=== PATIENT | female | born 1940 | race Caucasian/White ===

== ENCOUNTER → 2016-10-05 | Outpatient (CLI) | payer MEDICARE, OTHER, MEDICAID ==
[~2016-10-05] MED LIST: ACETAMINOPHEN650 MG R; ALBUTEROL2.5 MG/31 INH; ALIGN4 MG PO; ASPIRIN325 MG PO; B-12 COMPL1000 MCG/1 IM; BACTRIM DS1 TAB PO; CIPRO500 MG PO; COLACE100 MG PO; COREG25 MG PO; COUMADIN ** 9/62 MG PO; COZAAR50 MG PO; DECADRON4 MG PO; DILANTIN100 MG PO; DULCOLAX10 MG R; FEOSOL325 MG PO; FLONASE 50 MCG/16 GM NOSE; HOUSE SUPPLEMENT; HYDROCHLOROTHIA25 MG PO; IMODIUM A-D2 MG PO; IPRAT-ALBUT 0.5-3 ML INH; KEFLEX500 MG PO; KEPPRA1000 MG PO; KLOR-CON 1010 MEQ PO; LANTUS (IN100 UNIT/M SUB-Q; LEVEMIR100 UNIT/1 SUB-Q; LEXAPRO20 MG PO; MILK OF MA400 MG/5 M PO; MIRALAX17 GM PO; NEOSPORIN OIN14.2 GM TOP; NORCO 5-325 TA1 EACH PO; NORVASC10 MG PO; NOVOLOG100 UNIT/1; NOVOLOG100 UNIT/1 SUB-Q; NOVOLOG100 UNIT/M SUB-Q; NYSTATIN15 GM TOP; OXYGEN M-15 INH; PERCOCET 5-3251 EACH PO; PHENERGAN-DM120 ML PO; PLAVIX75 MG PO; PROBIOTIC1 EAC1 PO; PROTONIX40 MG PO; REVLIMID15 MG PO; SANCTURA 20MG20 MG PO; SENNA-S TABLET1 EACH PO; SEROPHENE50 MG PO; SEROQUEL50 MG PO; SURFAK240 MG PO; SYNTHROID137 MCG PO; TESSALON PERLE100 MG PO; TOPAMAX100 M1 PO; TYLENOL325 MG PO; VESICARE5 MG PO; VOLTAREN 1% GE100 GM TOP; ZOFRAN4 MG PO
== END | disposition disaster alternative care site (69) ==
LOC: LJOHN2 11:16
DX: C80.1 Malignant (primary) neoplasm, unspecified (principal); D63.0 Anemia in neoplastic disease; R53.83 Other fatigue

== ENCOUNTER 2016-10-23 14:29 | Emergency (ER) | payer MEDICARE, OTHER, MEDICAID ==
--- NOTE | ~2016-10-23 | ER ---
PATIENT'S NAME: DENYS STEPHENSON [facility] AGE: 76 Y [address] ROOM: [place] [address] LOCATION: [facility] ADMIT DATE: 10/23/2016 ER/Outpatient Report DISCHARGE DATE: 10/23/2016 FAMILY PHYSICIAN: Prakash Zelaya MD ATTENDING PHYSICIAN: Marcio Jara HISTORY OF PRESENT ILLNESS: This patient is a 76-year-old female, who has some extraocular muscle dysfunction involving the left eye. The patient initially saw Dr. Jara here in the emergency department. See Dr. Jara's dictation in regard to the chief complaint, history of present illness, past medical history, physical exam, laboratory study results, CT scan study results. Dr. Jara transferred the patient's care over to me at shift change. He asked me to follow up with the patient's MRI of the brain study, final diagnosis, and treatment plan. MRI of the brain showed 3 punctate infarcts, one involving the left mid line of the mary lou, second right parietal lobe, and third right basal ganglia. MRI scan was read by Radiology, see dictated transcribed report. IMPRESSION: 1. Three punctate infarcts involving:. a. Left mid line area of the mary lou. b. Right parietal lobe. c. Right basal ganglia. The patient does have dysfunction of the extraocular muscle and movements of the left eye. PLAN: I did discuss this patient with Dr. Ashley for Dr. Zelaya. Dr. Ashley felt that this patient is in need of a stroke workup but could have this as an outpatient basis. The patient will be discharged back to [facility] from the emergency department. Continue present medications and care. The patient is to follow up with Dr. Zelaya in 1 to 2 days for outpatient stroke workup. I did discuss this with the patient. She seemed to understand. MD ZUHAIR SOTO/modl /[id number] d: 10/24/16 0059 t: 10/24/16 1836, OUTPATIENT REPORT
--- NOTE | ~2016-10-23 | ER ---
PATIENT'S NAME: DENYS STEPHENSON [facility] AGE: 76 Y [address] ROOM: [place] [address] LOCATION: [facility] ADMIT DATE: 10/23/2016 ER/Outpatient Report DISCHARGE DATE: 10/23/2016 FAMILY PHYSICIAN: Prakash Zelaya MD ATTENDING PHYSICIAN: Marcio Jara CHIEF COMPLAINT: Unusual eye movements. HISTORY OF PRESENT ILLNESS: According to the facility and the patient's primary care provider Dr. Zelaya, today, the patient had unusual eye motion which she has not had previously. The symptoms started today. Dr. Zelaya knows the patient can be a minimizer, but has relatively well-controlled seizure disorder as well as diabetes. She is a facility patient. She has no personal complaints. She was evaluated at [facility] earlier today and reportedly has a third nerve palsy, but it is not clear which side that is present on. She does note intermittent double vision. No other concerns at this time. No headache. No other focal weakness or symptoms. PAST MEDICAL HISTORY: Documented on the record and reviewed by me. SOCIAL HISTORY: Documented on the record and reviewed by me. MEDICATIONS: Documented on the record and reviewed by me. ALLERGIES: DOCUMENTED ON THE RECORD AND REVIEWED BY ME. REVIEW OF SYSTEMS: All systems were reviewed and negative except as noted in the HPI. PHYSICAL EXAMINATION: VITAL SIGNS: Blood pressure 119/64, pulse 67, respiratory rate is 16, temperature 97.6, SpO2 is 92% on room air. Pain is 0/10. GENERAL: A 76-year-old female appearing older than stated age, sitting in a wheelchair with no obvious pain or distress. NEURO: The patient is awake and alert. GCS is 15. She has dysconjugate gaze with intermittent fixation with right and left eyes. The eyes are dilated, however, the patient did receive dilated exam earlier today. Extraocular movements are intact, though it does appear as though the left eye has difficulty crossing the midline, but intermittently does. She does have PATIENT'S NAME: DENYS STEPHENSON [facility] AGE: 76 Y [address] ROOM: [place] [address] LOCATION: [facility] ADMIT DATE: 10/23/2016 ER/Outpatient Report DISCHARGE DATE: 10/23/2016 FAMILY PHYSICIAN: Prakash Zelaya MD ATTENDING PHYSICIAN: Marcio Jara nystagmus at rest occasionally as well. The extremities do not reveal any obvious weakness, and she has very poor tone in the bilateral lower extremities. No other facial asymmetry or other cranial nerve deficit that I could detect on exam. No dysarthria. HEENT: Normocephalic and atraumatic. The eyes are dilated. Extraocular movements appear intact, except as noted above. The oropharynx is clear and moist. NECK: Supple. Trachea is midline. CHEST/HEART: Regular rate and rhythm with no murmurs. LUNGS: Clear to auscultation bilateral. ABDOMEN: Normal to palpation. No obvious rebound, guarding, or masses. BACK: Deferred. EXTREMITIES: Grossly warm and well perfused. There are ankle booties on both sides. SKIN: Appears to be well, intact. LABS AND X-RAYS: Head CT without significant findings per Radiology. Labs were obtained and notable for hypothyroidism with a TSH of 5.78 and a free T4 of 0.7. CMS is notable for a glucose of 123, BUN of 19, normal renal function, and elevated alk phos of 146. CBC with a low white count of 3.3, hemoglobin of 13.8, platelets of 117, INR is 1.0. MRI of the brain is pending. IMPRESSION: New cranial nerve palsy, undetermined etiology. EMERGENCY DEPARTMENT COURSE: The patient seen and evaluated. Head CT nondiagnostic. Exact time of onset is unknown. I do not believe the patient is a tPA candidate at this time. Labs are nondiagnostic for new conditions. The patient has known hypothyroidism. Head MRI is pending. Care was transitioned to Dr. Leahy at 1800 hours to follow up the MRI and disposition the patient accordingly. MD SEAN LOWE/ranjana /[id number] d: 10/24/16 1113 t: 10/30/16 0657, OUTPATIENT REPORT
[~2016-10-23 14:29] MED LIST changes: -COREG25 MG PO; -COUMADIN ** 9/62 MG PO; -KEFLEX500 MG PO; -LEVEMIR100 UNIT/1 SUB-Q; -NEOSPORIN OIN14.2 GM TOP; -PLAVIX75 MG PO; -SENNA-S TABLET1 EACH PO; -VOLTAREN 1% GE100 GM TOP
[2016-10-23 15:59] LABS: BASOPHIL # 0.1 K/uL (0.0-0.2); BASOPHIL % 1.8 %; EOSINOPHIL # 0.3 K/uL (0.0-0.5); EOSINOPHIL % 8.2 %; HEMATOCRIT 42.8 % (33.0-46.0); HEMOGLOBIN 13.8 g/dL (10.0-15.0); IMMATURE GRANULOCYTE % 0.3 %; LYMPHOCYTE % 29.4 %; MCH 33.6 pg (27.0-34.0); MCHC 32.2 gm/dL (32.0-36.5); MCV 104.1 fl (83.0-98.0); MONOCYTE # 0.4 K/uL (0.0-1.0); MPV 10.5 fl (9.4-12.4); NEUTROPHIL # (ANC) 1.6 K/uL (1.8-7.8); NEUTROPHIL % 47.3 %; NRBC % 0 /100WBC (0-0.00); PLATELET COUNT 117 K/uL (150-450); RBC 4.11 M/uL (3.50-5.50); RDW-CV 13.4 % (11.9-14.6); WBC 3.3 K/uL (4.0-11.0)
[2016-10-23 16:07] LABS: INR - (THERAPEUTIC) 1.02 (0.92-1.07); PROTIME 10.7 SECONDS (9.8-11.4); PTT 29 SECONDS (25-32)
[2016-10-23 16:20] LABS: ALK PHOS 146 IU/L (33-138); ALT 31 IU/L (12-78); ANION GAP 11.1 (10.0-19.0); AST 16 IU/L (10-40); BLOOD UREA NITROGEN 19 mg/dL (6-24); CALCIUM 7.8 mg/dL (8.5-10.5); CHLORIDE 106 mMol/L (96-110); CO2 28 mMol/L (22-32); CREATININE 0.7 mg/dL (0.5-1.1); ESTIMATED GFR (MDRD EQUATION) > 60; POTASSIUM 4.1 mMol/L (3.7-5.1); SODIUM 141 mMol/L (135-145); TOTAL BILIRUBIN 0.2 mg/dL (0.0-1.5); TOTAL PROTEIN 5.7 g/dL (6.0-8.4)
== END 2016-10-23 19:17 ==
LOC: GMED 14:29
PROVIDERS: Emergency Medicine
DX: I63.9 Cerebral infarction, unspecified (principal); H49.00 Third [oculomotor] nerve palsy, unspecified eye; G40.909 Epilepsy, unspecified, not intractable, without status epilepticus; E11.9 Type 2 diabetes mellitus without complications; Z88.5 Allergy status to narcotic agent; Z91.018 Allergy to other foods; Z88.8 Allergy status to other drugs, medicaments and biological substances

== ENCOUNTER 2017-01-23 15:33 | Inpatient (IN) | payer MEDICARE, OTHER, MEDICAID ==
[~2017-01-23] VITALS: Ht 170.2 cm; Wt 69.0 kg
--- NOTE | ~2017-01-23 | CATH ---
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 Severe distal LAD stenosis. Diagnostic Recommendations PCI of LAD Interventional Findings and Conclusion Successful CATALINO to distal LAD Interventional Recommendations Aspirin and Plavix and anticoagulation for 1 month, then Plavix and anticoagulation for 11 months. Procedure Description The patient was brought to the diagnostic cardiac catheterization-EP laboratory in the fasting, non-sedated state. Informed consent was obtained in the written and verbal form after the risks and benefits were explained. The patient had no further questions and agreed to proceed. The planned puncture-incision site(s) were shaved and prepped with ChloraPrep and draped in the usual sterile manner. Conscious sedation, supplemental oxygen, and pain control medications were delivered by a registered nurse under physician guidance. Surface ECG rhythm, blood pressure measurement, and pulse oximetry were monitored throughout the procedure. Arterial access. The access site was infiltrated with lidocaine. The vessel was entered with the Seldinger technique. A sheath was advanced into the vessel and used for catheter placement. Venous access. The access site was infiltrated with 2% lidocaine. The vessel was entered with the Seldinger technique. A sheath was advanced into the vessel and used for catheter placement. Selective left coronary angiography. A catheter was advanced into the left coronary vessel ostium under Fluoroscopic guidance. Contrast was injected by hand. Images were obtained in multiple projections. Selective right coronary angiography. A catheter was advanced into the right coronary vessel ostium under fluoroscopic guidance. Contrast was injected by hand. Images were obtained in multiple projections. Left heart catheterization. A catheter was advanced across the aortic valve to the left ventricle under fluoroscopic guidance. Resting hemodynamics were obtained. Right heart catheterization. A [place] Jesi catheter was successfully advanced to the right atrium, right ventricle, pulmonary artery, and pulmonary artery wedge position under fluoroscopic guidance. Resting hemodynamics were obtained. Measurements included pressures, arterial and venous oxygen saturation samples, and cardiac output. The [place] was removed without difficulty. Angioplasty and Stent Placement: A guiding catheter was used to intubate the vessel. A 0.14 wire was then used to cross the lesion. A balloon catheter was placed across the lesion and inflated. The balloon catheter was then removed. A Drug Eluting Stent was placed and inflated. Post placement angiograms were performed. Arterial and Venous hemostasis was achieved. The patient was transferred to a regular nursing floor via cart accompanied by a nurse. The patient left the laboratory in stable condition. Diagnostic Cath Status: Urgent Interventional Cath Status: Urgent Procedure Procedure Type Diagnostic procedure:Angiography:, Right and Left Heart Cath, Coronary Angios PCI procedure:Bare Metal Coronary Stent:, LAD, PTCA:, LAD Indications: Shortness of breath and Elevated troponin. The procedure was explained in detail to the patient. Risks, complications and alternative treatments were reviewed. Written consent was obtained. Medications Reviewed with Patient prior to Procedure. Angiographic Findings Dominance: Right Cardiac Arteries and Lesion Findings LMCA: Lesion on LMCA: Distal subsection.30% stenosis . LAD: Lesion on Dist LAD: Mid subsection.75% stenosis 20 mm length reduced to 0%. Pre procedure GERDA III flow was noted. Post Procedure GERDA III flow was present. The guidewire cross was successful.The lesion was diagnosed as a high risk lesion.Culprit lesion. Treatment results:Interventional treatment was successful. Devices used - Whisper Wire .014 x 190. Number of passes: 1. - Emerge Balloon 2.0 x 15. 1 inflation(s) to a max pressure of: 10 ananya. - Promus Premier 2.25 x 20 Stent. 1 inflation(s) to a max pressure of: 11 ananya. - NC Emerge Balloon 2.5 x 15. 1 inflation(s) to a max pressure of: 14 ananya. Lesion on Prox LAD: 30% stenosis . Lesion on Mid LAD: 40% stenosis . Lesion on 1st Dia% stenosis . LCx: Lesion on 1st Ob Jammie: Mid subsection.50% stenosis . Lesion on Prox CX: 20% stenosis . RCA: PDA possibly occluded distally Lesion on Mid RCA: 40% stenosis . Coronary Tree Procedure Data Procedure Date Date: 01/26/2017Start: 05:29 PMEnd: 06:50 PM Entry Locations - Retrograde Percutaneous access was performed through the Right Radial artery (Primary location). A 6 Fr sheath was inserted. Unsuccessful closure attempt was performed using: an R band. Hemostasis was successfully obtained using Mechanical Compression. Closure Comments: 13 cc of air in the R band. - Antegrade Percutaneous access was performed through the Right Brachial vein. A 6 Fr sheath was inserted. Hemostasis was successfully obtained using Manual Compression. Closure Comments: Pressure held by Trish for 10 minutes.. Procedure Medications Order and Administration + + + + + !Time !Medication !Dosage !Route ! + + + + + !01/26/2017 05:32 PM !Radial Heparin (ACC_3) !2500 units !I.A. ! + + + + + 01/26/2017 05:32 PM !Radial Verapamil !3 mg !I.A. ! + + + + + 01/26/2017 05:32 PM !Radial Nitroglycerin !200 mcg !I.A. ! + + + + + !01/26/2017 05:36 PM !Oxygen !2 l/min !NC ! + + + + + !01/26/2017 05:41 PM !Heparin (ACC_3) ! !I.V. drip ! + + + + + !01/26/2017 05:50 PM !Heparin (ACC_3) !4000 units !I.V. bolus ! + + + + + !01/26/2017 06:10 PM !Integrilin (ACC_7) !20 mg !I.C. ! + + + + + !01/26/2017 06:23 PM !Nitroglycerin !200 mcg !I.C. ! + + + + + !01/26/2017 06:28 PM !Plavix (ACC_8) !600 mg !P.O. ! + + + + + Devices Used - A6 Fr. Balloon Wedge Catheterwas used for:Right heart cath. - A6 Fr. BS JR 4 Diag. Catheterwas used for:Right coronary angiography. - A6 Fr. BS JL 3.5 Diag. Catheterwas used for:Left coronary angiography. - A6 Fr. XBLAD 3.5 Guide Catheterwas used for:LAD Intervention. - A6 Fr. Guidlinerwas used for:LAD Intervention. Contrast Material - Isovue [id number] ml Fluoroscopy Time: Diagnostic: 17:00 minutes. Total: 17:00 minutes. Fluoroscopy Dose: Diagnostic: 1966 mGy. Total: 1966 mGy. Estimated Blood Loss: 25 ml. Additional [facility] PCI Information PCI Indication:PCI for high risk Non-STEMI or unstable angina. Medical History Allergies - Morphine. - Other:(Niacin). - Other:(Strawberries). Risk Factors The patient risk factors include:treated hypertension, insulin-treated diabetes mellitus, last creatinine: 0.5 mg/dl and creatinine clearance: 110.35 ml/min. Admission Data Admission Date: 01/23/2017 Admission Time: 05:35 PM Insurance Payors: Medicare. Admission Medications + +------+------+ + + + + !Medication !Dosage!Times !Last !Last !Administered !Comments ! ! ! !Per !Delivery !Delivery ! ! ! ! ! !Day !Date !Time ! ! ! + +------+------+ + + + + !Aspirin ! ! ! ! !Yes ! ! !(any) ! ! ! ! ! ! ! + +------+------+ + + + + !Beta ! ! ! ! !Yes ! ! !Thomas ! ! ! ! ! ! ! !(any) ! ! ! ! ! ! ! + +------+------+ + + + + Clinical Evaluation Leading to Procedure - The patient's CAD presentation was assessed as: Non-STEMI. - The patient's anginal syndrome during the past two weeks was assessed as: Class IV according to the [place] Cardiovascular Society Classification System (CCS). Anti-anginal medications were prescribed during the past two weeks. The medication is: Beta Blockers. Snapshots Hemodynamics Condition: Rest O2 Consumption: Estimated: 180.70Heart Rate: 91 bpm Oxygen Saturation +--------+-----+----+ +---+ + !Location!pCO2 !pO2 !% Saturation !Hgb!O2 Content ! +--------+-----+----+ +---+ + !RA ! ! !60.8 ! ! ! +--------+-----+----+ +---+ + !PA ! ! !59.8 ! ! ! +--------+-----+----+ +---+ + !FA ! ! !87.4 ! ! ! +--------+-----+----+ +---+ + Pressures (mmHg) +-----+ + !Site !Pressure ! +-----+ + !RA !9/9 (8) ! +-----+ + !RV !42/4 ,11 ! +-----+ + !PCW !18/19 (15) ! +-----+ + !PA !44/19 (31) ! +-----+ + !LV !110/17 ,19 ! +-----+ + !LV !120/7 ,9 ! +-----+ + !AO !118/77 (95) ! +-----+ + !LV !119/6 ,9 ! +-----+ + !AO !122/74 (97) ! +-----+ + !AO !108/70 (87) ! +-----+ + Cardiac Output +------+ + + + !Method!CO (l/min) !CI (l/min/m2) !SV (ml) ! +------+ + + + !Bibi !3.46 !1.9 !38.23 ! +------+ + + + Valve Gradients and Areas + +--------+--------+--------+---------+ + + !Valve !Peak !Mean !Area !Index !Flow !Source ! + +--------+--------+--------+---------+ + + !Aortic !1 !0 ! ! !228.08 !Bibi ! + +--------+--------+--------+---------+ + + !Aortic !1 !0 ! ! ! ! ! + +--------+--------+--------+---------+ + + Shunts Oxygen Values O2 Capacity 189.04 O2 Consumption 180.7 Flows (l/min) Qs 3.59 Vascular Resistance (dynes x sec x cm-5) + +-----+-----+----+----+---------+-------+ !CO method !TSVR !SVR !TPVR!PVR !TPVR/TSVR!PVR/SVR! + +-----+-----+----+----+---------+-------+ !Bibi !25.14!22.84!8.93!4.63!0.36 !0.2 ! + +-----+-----+----+----+---------+-------+ !Qp or Qs !24.23!22.01! ! ! ! ! + +-----+-----+----+----+---------+-------+ Signatures dtt: Kat Newton dtd: 01/26/17 1729 Physician Self Edit
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
--- NOTE | ~2017-01-23 | DS ---
PATIENT'S NAME: DENYS STEPHENSON [facility] AGE: 76 Y [address] ROOM: [place] [address] LOCATION: GPCU ADMIT DATE: 01/23/2017 Discharge Summary DISCHARGE DATE: 02/07/2017 FAMILY PHYSICIAN: Prakash Zelaya MD ATTENDING PHYSICIAN: Prakash Zelaya DISCHARGE DIAGNOSES: 1. Bilateral pleural effusions with hypoxia. 2. Aaq-CQ-geudkqo elevation myocardial infarction with cardiovascular disease. 3. Diabetes mellitus type 2, insulin dependent. 4. Hypertension. 5. Atrial flutter. 6. Chronic anticoagulation. 7. Multiple myeloma. 8. Anxiety. 9. Hypokalemia. 10. Urinary incontinence. CONSULTS DURING ADMISSION: 1. Pulmonology. 2. Cardiology. 3. Physical Therapy and Occupational Therapy. PROCEDURES DURING ADMISSION: 1. Heart catheterization on January 26, 2017. 2. Thoracentesis for bilateral pleural effusions on February 01, 2017. 3. Attempted cardioversion on February 03, 2017. HOSPITAL COURSE: The patient is a 76-year-old female, who presented with acute hypoxia and elevated D-dimer. The patient was negative for pulmonary emboli on her CT, but did show large pleural effusions. Cardiology was consulted, and we attempted diuresis, and the patient was found to have elevated heart enzymes and was diagnosed with an NSTEMI. The patient had a heart catheterization with stent placement on January 26 and tolerated it well. We continued to diurese the patient, but the effusions remained enlarged, so Pulmonology was consulted and performed a thoracentesis on February 01, 2017. The patient's blood sugars and hypertension remained controlled through her hospital stay. The patient also remained in atrial flutter and an attempt at cardioversion was made, but was unsuccessful. It was determined at that time that we would just do Coumadin based on the interaction of the other anticoagulants with her seizure disorder. Upon day of discharge, the patient was on room air but still requiring oxygen at night. DISCHARGE CONDITION: Stable. PATIENT'S NAME: DENYS STEPHENSON [facility] AGE: 76 Y [address] ROOM: [place] [address] LOCATION: GPCU ADMIT DATE: 01/23/2017 Discharge Summary DISCHARGE DATE: 02/07/2017 FAMILY PHYSICIAN: Prakash Zelaya MD ATTENDING PHYSICIAN: Prakash Zelaya DISPOSITION: senior living. DISCHARGE MEDICATIONS: Please see list. DISCHARGE INSTRUCTIONS: The patient's INR is therapeutic today, but we will obtain another INR in approximately 2 days. We will decrease her dose from 4 mg to 3 mg since she became therapeutic so quickly. We will continue to monitor her sugars and send her with a reduced dose of her long-acting to try and prevent any hypoglycemic events. We will have her follow up with Cardiology and Pulmonology as directed. MD TAYE SWEENEY/ranjana /[id number] d: 02/08/17 0300 t: 02/09/17 1901, DISCHARGE SUMMARY
--- NOTE | ~2017-01-23 | CON ---
PATIENT'S NAME: NADIA VEGA [facility] AGE: 76 Y [address] ROOM: G6304 [place], [place] [address] LOCATION: GPCU ADMIT DATE: 01/23/2017 Consultation DISCHARGE DATE: FAMILY PHYSICIAN: Prakash Zelaya MD ATTENDING PHYSICIAN: Prakash Zelaya REFERRING PHYSICIAN: Kat Newton MD HISTORY OF PRESENT ILLNESS: Nadia Vega is a 76-year-old woman, who is currently hospitalized for evaluation and treatment of atrial fibrillation and diastolic congestive heart failure associated with dyspnea, hypoxia, and bilateral pleural effusions. Parenthetically, the Pharmacy has raised a question about whether her lenalidomide needs to be discontinued or continued, and has asked Hematology/Oncology to address the situation. Ms. Vega currently lives in [facility]. She has lived there for a year, following the of Mr. Vega. She has been wheelchair bound for three years because she is prone to falls. She is under treatment for a seizure disorder. On 01/23/2017, the patient presented to Dr. Prakash Zelaya's office with dyspnea. Hypoxia and bilateral pleural effusions were noted. The presence of continued atrial fibrillation was noted. The patient was hospitalized on the Progressive Care Unit, and Dr. Newton was consulted for evaluation of her bilateral pleural effusions, atrial fibrillation, and right bundle-branch block. The patient is currently on a diltiazem infusion, a heparin infusion, and nitroglycerin. She also takes fluticasone, ASA 81 mg p.o. daily, Bactrim DS one p.o. on Sunday and , carvedilol, and Colace as well as her phenytoin, levetiracetam, levothyroxine sodium, escitalopram, atorvastatin, clopidogrel, pantoprazole, quetiapine, and insulin. The patient's clinical situation has improved somewhat. The patient does have multiple myeloma, which was first symptomatic with a destructive expansive lesion in the right posterior tenth rib noted on CAT scan on 04/03/2014. A lucent vertebral body was present on the right side of C7. Dr. 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 The patient was placed on lenalidomide and dexamethasone on 12/30/2014 and zoledronic acid on 01/07/2015. The patient is currently on day 14 of her 25th cycle of zoledronic acid, and on day 11 of her 26th cycle of lenalidomide and dexamethasone. The patient generally receives lenalidomide 15 mg p.o. days 1 to 21 and dexamethasone 40 mg p.o. on days one, eight, fifteen, and twenty two. The patient's lambda light chains were slightly elevated at 31.1 mg/L on 01/17/2017. The quantitative immunoglobulins were normal. There was hypoalbuminemia on the serum protein PATIENT'S NAME: NADIA VEGA [facility] AGE: 76 Y [address] ROOM: [place] [address] LOCATION: GPCU ADMIT DATE: 01/23/2017 Consultation DISCHARGE DATE: FAMILY PHYSICIAN: Prakash Zelaya MD ATTENDING PHYSICIAN: Prakash Zelaya electrophoresis. The patient was doing reasonably well (see the progress note from [facility] on 01/17/2017). Her appetite was good, her energy level was stable, and she was sleeping well. The patient was placed on her lenalidomide. Her absolute neutrophil count was 1410 and her hemoglobin was 14.5 g/dL. Followup was planned in four weeks. Subsequently, the patient developed her dyspnea. ACTIVE MEDICAL PROBLEMS, CHRONIC AND DIAGNOSED: 1. Osteoarthritis. 2. Seizure disorder. 3. Vitamin B12 deficiency. 4. Anxiety - depression. 5. Atrial fibrillation. 6. Diastolic congestive heart failure. 7. Type 2 diabetes mellitus. 8. Hyperreflexic bladder. 9. Hypothyroidism. MEDICATIONS UPON ADMISSION: Other than those noted in the current medications: 1. Acetaminophen. 2. Albuterol. 3. Amlodipine. 4. Aspirin 325 mg p.o. b.i.d. 5. Benzonatate. 6. Cephalexin. 7. Diclofenac. 8. Cyanocobalamin. 9. Docusate sodium. 10. Fluticasone. 11. Hydrocodone. 12. APAP. 13. Lactobacillus. 14. Loperamide. 15. Magnesium hydroxide. 16. Ondansetron. 17. KCl. ADVERSE REACTIONS TO MEDICATIONS, TRANSFUSIONS, AND ALLERGIES: 1. The patient reports allergies to niacin, morphine, and strawberries. 2. The patient received two units of packed red blood cells on 10/23/2013. HABITS: 1. No tobacco. 2. No alcohol. PATIENT'S NAME: NADIA VEGA [facility] AGE: 76 Y [address] ROOM: [address] [place], [place] [address] LOCATION: [facility] ADMIT DATE: 01/23/2017 Consultation DISCHARGE DATE: FAMILY PHYSICIAN: Prakash Zelaya MD ATTENDING PHYSICIAN: Prakash Zelaya SOCIAL HISTORY: The patient is currently , and lives in the [facility]. ACUTE MEDICAL ILLNESSES (RESOLVED), PAST SURGERIES, AND INJURIES: 1. In 2013 - right total shoulder arthroplasty. 2. In 2013, right humerus fracture in the periprosthetic area. 3. In 2014, excision of tenth rib. 4. In 2016, hospitalization with community-acquired pneumonia. 5. Current hospitalization for atrial fibrillation with rapid ventricular response and fluid retention. REVIEW OF SYMPTOMS: Not obtained other than the pertinent findings already mentioned in the history of the present illness. PHYSICAL EXAMINATION: VITAL SIGNS: Pulse was 94 and irregularly irregular, blood pressure was 110/65, respiratory rate was 17, and temperature was 98.7. Height is 67 inches, weight is 71.9 kg (159 pounds), and BMI is 24.8 kg/m2. GENERAL: Well-developed, chronically ill, somewhat drowsy 76-year-old female, in no acute distress. HEENT: Unremarkable. Lymph nodes were nonpalpable. NECK: Mild JVD. CHEST: Decreased breath sounds. CARDIOVASCULAR: Irregularly irregular rhythm with no murmurs, bruits, or adventitious sounds. ABDOMEN: Soft. EXTREMITIES: Palpable peripheral pulses. No clubbing or cyanosis. Trace lower extremity. NEUROLOGIC: Arousable and appropriate. IMPRESSION: 1. Multiple myeloma, in remission. 2. The lenalidomide conceivably could promote the atrial fibrillation. Conceivably, the dexamethasone could contribute to the patient's fluid retention and be one factor that predisposed her to atrial fibrillation and difficulties controlling the rhythm. 3. The patient is on heparin, so it is reasonable to place the patient on lenalidomide. At the very least, she should be on 325 mg of aspirin p.o. b.i.d. to lower the chance of deep venous thrombosis from the combination of lenalidomide and dexamethasone. If she has to be on therapeutic anticoagulation for her atrial fibrillation, of course, aspirin can and should be discontinued. RECOMMENDATIONS: PATIENT'S NAME: NADIA VEGA [facility] AGE: 76 Y [address] ROOM: [place] [address] LOCATION: [facility] ADMIT DATE: 01/23/2017 Consultation DISCHARGE DATE: FAMILY PHYSICIAN: Prakash Zelaya MD ATTENDING PHYSICIAN: Prakash Zelaya DIAGNOSTIC: No further tests from the multiple myeloma standpoint. TREATMENT 1. Reinstate lenalidomide for the next 10 days of the planned course. 2. Consider holding or decreasing the dose of dexamethasone, which is quite ample for a woman her age and performance status. PATIENT EDUCATION: Discussed the approach for multiple myeloma, but emphasized that is not the reason she is in the hospital, which she already knew. JOCELYNE CARPENETR MD [facility]/modl /[id number] CC: Kat Newton MD d: 01/31/17 2337 t: 02/01/17 0945, CONSULTATION REPORT
--- NOTE | ~2017-01-23 | PUL ---
PATIENT'S NAME: DENYS STEPHENSON [facility] AGE: 76 Y [address] ROOM: [place] [address] LOCATION: GPCU ADMIT DATE: 01/23/2017 Pulmonary DISCHARGE DATE: 02/07/2017 FAMILY PHYSICIAN: Prakash Zelaya MD ATTENDING PHYSICIAN: Prakash Zelaya NAME OF PROCEDURE: Overnight Pulse Oximetry DATE OF PROCEDURE: February 06 to February 07, 2017 REASON FOR EXAM: Nocturnal hypoxemia RESULTS: The test was performed on room air. The recording time was 10 hours, 54 minutes, and 40 seconds, with a total valid sampling time of 10 hours, 53 minutes, and 44 seconds. The highest pulse was 162, lowest pulse was 67, the mean pulse was 97. The highest SpO2 was 96%, the lowest SpO2 was 75%, with a mean SpO2 of 91.2%. The patient spent 1 hour, 32 minutes and 52 seconds with SpO2 less than 89%, representing 14.2% of the total sleep time. The desaturation event index was elevated at 19.4. PHYSICIAN INTERPRETATION: The patient has evidence of significant nocturnal hypoxia and would qualify for supplemental oxygen as per Medicare criteria. However, because of her significant nocturnal hypoxia with an elevated desaturation event index a sleep study is suggested at this time. MD KIM GUADARRAMA/alondra /[id number] dtt: 02/08/17 1426 , LUCINA LOYOLA dtd: 02/08/17 1319
--- NOTE | ~2017-01-23 | ENPV ---
Vascular Lower Extremities DVT Study Procedure Demographics Patient Name DENYS STEPHENSON Date of Study 01/24/2017 Patient Number [id number] Gender Female Date of 1940 Age 76 Visit Number [id number] Height 67 Weight 165 Number Referring Nathalie Richmond MD Interpreting Eric Vinson MD Physician Physician Physician Ordering Nathalie Richmond Ag Equipment Field Service Technician Physician Director Of Sales Marketing [facility] Conclusions Summary No evidence of deep vein thrombosis or superficial thrombophlebitis in the lower extremities bilaterally. Bilateral peroneal not well visualized, can't rule out small emboli. Procedure Type of Study: Veins:Lower Extremities DVT Study, Venous Duplex Lower Extremity Bilateral. Indications for Study:Pulmonary embolism. Appropriate Use Criteria:9 Patient Status:Routine. Study Location:Inpatient Portable. Technical Quality:Adequate visualization. Velocities are measured in cm/s ; Diameters are measured in cm Right Lower Extremities DVT Study Measurements Right 2D and Doppler Measurements + + + + +------+------+ + !Location !Visualized!Compressibility!Thrombosis!Signal!Reflux!Reflux ! ! ! ! ! ! ! !(sec) ! + + + + +------+------+ + !GSV Thigh !Yes !Yes !None !Phasic! ! ! + + + + +------+------+ + !Common !Yes !Yes !None !Phasic! ! ! !Femoral ! ! ! ! ! ! ! + + + + +------+------+ + !Prox !Yes !Yes !None !Phasic! ! ! !Femoral ! ! ! ! ! ! ! + + + + +------+------+ + !Mid Femoral!Yes !Yes !None !Phasic! ! ! + + + + +------+------+ + !Dist !Yes !Yes !None !Phasic! ! ! !Femoral ! ! ! ! ! ! ! + + + + +------+------+ + !Popliteal !Yes !Yes !None !Phasic! ! ! + + + + +------+------+ + !Gastroc !Yes !Yes !None !Phasic! ! ! + + + + +------+------+ + !PTV !Yes !Yes !None ! ! ! ! + + + + +------+------+ + !Peroneal !No !No ! ! ! ! ! + + + + +------+------+ + Left Lower Extremities DVT Study Measurements Left 2D and Doppler Measurements + + + + +------+------+ + !Location !Visualized!Compressibility!Thrombosis!Signal!Reflux!Reflux ! ! ! ! ! ! ! !(sec) ! + + + + +------+------+ + !GSV Thigh !Yes !Yes !None !Phasic! ! ! + + + + +------+------+ + !Common !Yes !Yes !None !Phasic! ! ! !Femoral ! ! ! ! ! ! ! + + + + +------+------+ + !Prox !Yes !Yes !None !Phasic! ! ! !Femoral ! ! ! ! ! ! ! + + + + +------+------+ + !Mid Femoral!Yes !Yes !None !Phasic! ! ! + + + + +------+------+ + !Dist !Yes !Yes !None !Phasic! ! ! !Femoral ! ! ! ! ! ! ! + + + + +------+------+ + !Popliteal !Yes !Yes !None !Phasic! ! ! + + + + +------+------+ + !Gastroc !Yes !Yes !None !Phasic! ! ! + + + + +------+------+ + !PTV !Yes !Yes !None ! ! ! ! + + + + +------+------+ + !Peroneal !No ! ! ! ! ! ! + + + + +------+------+ + Signature dtt: DALLIN LIEBERMAN dtd: 01/24/17 0708 Physician Self Halima
--- NOTE | ~2017-01-23 | CON ---
PATIENT'S NAME: DENYS STEPHENSON [facility] AGE: 76 Y [address] ROOM: [place] [address] LOCATION: GPCU ADMIT DATE: 01/23/2017 Consultation DISCHARGE DATE: 02/07/2017 FAMILY PHYSICIAN: Prakash Zelaya MD ATTENDING PHYSICIAN: Prakash Zelaya DATE OF CONSULTATION: 01/31/2017 REFERRING PHYSICIAN: Kat Newton MD INDICATION: Bilateral pleural effusions. HISTORY OF PRESENT ILLNESS: This 76-year-old female, admitted for bilateral effusions and new onset atrial fibrillation after being noted to be hypoxic as well. She has a history of multiple myeloma, hypertension, and recent echo showing EF of 60% with mildly reduced right ventricle and pulmonary hypertension with RVSP 45. ProBNP was elevated on admission to 10,782. She was initially diuresed, but after a couple of days, she was hypotensive, so diuretics were stopped. She was taken to asset availability leader on the with 3-vessel disease and received drug-eluting stent to the LAD. She was started on Cardizem drip and is now on beta-marc for rate control for the atrial fibrillation. She has mainly been on room air and is currently on room air at 96%. She denies shortness of breath or worsening cough. She has no hemoptysis or edema. She has no history of tobacco use or previous lung history. A CT of the chest shows bilateral pleural effusions with atelectasis. PAST MEDICAL HISTORY: Includes diabetes, hypertension, GERD, multiple myeloma, hypothyroidism, and anemia. ALLERGIES: SEE MAR. MEDICATIONS: See MAR. FAMILY HISTORY: The patient's mother has a history of cancer. She also has an uncle and grandmother with a history of cancer. SOCIAL HISTORY: The patient denies ever using tobacco. She denies alcohol use. REVIEW OF SYSTEMS: PATIENT'S NAME: DENYS STEPHENSON [facility] AGE: 76 Y [address] ROOM: [place] [address] LOCATION: GPCU ADMIT DATE: 01/23/2017 Consultation DISCHARGE DATE: 02/07/2017 FAMILY PHYSICIAN: Prakash Zelaya MD ATTENDING PHYSICIAN: Prakash Zelaya All review of systems are negative except for what is noted in the HPI. PHYSICAL EXAMINATION: VITAL SIGNS: Blood pressure 112/66, pulse 94, respirations 17, temperature 98.7. Weight currently today is 73.2, on admission is 71.9 kilos. Overall intake is greater than output serially. She is 96% on room air. GENERAL: This is a 76-year-old, well-developed, well-nourished female who is alert and oriented x3 and appears in no acute distress at the time of exam. HEENT: Head: Normocephalic and atraumatic. Eyes clear. NECK: Supple. No adenopathy. No carotid bruits or JVD. LUNGS: Decreased breath sounds at both bases with a few crackles. No wheezing. HEART: Regular rate and rhythm without murmur, gallop, or rub. ABDOMEN: Soft, nontender, and nondistended. Bowel sounds x4. EXTREMITIES: No cyanosis, clubbing, or edema. DIAGNOSTIC DATA: ProBNP 4659. WBC 3.4, hemoglobin 12.7, hematocrit 38.3, and platelets 115. Sodium 138, potassium 3.8, BUN 10, and creatinine 0.7. CT of the chest showed bilateral effusions, right greater than left, with bilateral atelectasis. ASSESSMENT: 1. Bilateral pleural effusions, transudative versus exudative. 2. Coronary artery disease, status post recent percutaneous coronary intervention, on aspirin, heparin drip, and Plavix. 3. Pulmonary hypertension. 4. Multiple myeloma. PLAN: We will plan for at least a diagnostic thoracentesis by Interventional Radiology. See orders for tests. Otherwise, follow up on Cardiology and Heme- Onc recommendations. Thank you for the consult and opportunity to participate in the patient's care. ROSE BUTLER APRN FOR LUCINA LOYOLA MD [facility]/ranjana /[id number] d: 02/23/17 1841 t: 03/06/17 0857, CONSULTATION REPORT
--- NOTE | ~2017-01-23 | ECHO ---
Transthoracic Echocardiography Report (TTE) Demographics Patient Name DENYS STEPHENSON Date of Study 01/24/2017 Patient Number [id number] Visit Number [id number] Date of 1940 Room Number G6304 Gender Female Number Age 76 year(s) Referring Aman Clarke Modern Dancer [employer] [facility], Physician Arlyn Richmond MD Physician Interpreting Efstratiheather Clarke External Grinder Tender Physician A Supervising Ordering Aman Arambulas MD/MLP Physician A Nurse Stress Mosaicist Conclusions Contractility Score Summary Normal Left Ventricular contractility was noted. Summary The estimated left ventricular ejection fraction is 60-65%. Mild concentric left ventricular hypertrophy. Diastolic function indeterminate due to patient's arrhythmia. Mildly reduced right ventricular function. The left atrium is mildly dilated. Mild mitral regurgitation by color Doppler. Mild tricuspid regurgitation by color Doppler. There is mild pulmonary hypertension. The pulmonary pressure (RVSP) is 45 mmHg. Procedure Type of Study TTE procedure:2D Echocardiogram, M-Mode, Doppler , Color Doppler. Procedure Date Date: 01/24/2017 Start: 07:45 AM Study Location: Inpatient Portable Technical Quality: Adequate visualization Indications:Atrial fibrillation and Congestive heart failure. Appropriate Use Criteria: 9 Patient Status: Routine HR: 94 bpm BP: 99/58 mmHg M-Mode/2D Measurements LA Dimension: 4.5 cm LA volume: 37 ml RV Mid: 2.02 cm LVOT VTI: 16.6 cm RV Length: 4.69 cm TAPSE: 1.49 cm TDI-S': 9.43 cm/s Doppler Measurements AV Peak Velocity: 1.08 m/s MV Peak E-Wave: 1.06 m/s AV Peak Gradient: 4.67 mmHg AV Mean Gradient: 3 mmHg MV P1/2t: 78 msec LVOT Peak Velocity: 0.88 m/s TR Gradient:35.05 mmHg PV Peak Velocity: 1.36 m/s Estimated RAP:10 mmHg PV Peak Gradient: 7.4 mmHg Estimated RVSP: 45 mmHg Estimated PASP: 45.05 mmHg Findings Left Ventricle Mild concentric left ventricular hypertrophy. Diastolic function indeterminate due to patient's arrhythmia. Right Ventricle Mildly reduced right ventricular function. Left Atrium The left atrium is mildly dilated. Right Atrium Normal right atrial size. Mitral Valve Moderate mitral annular calcification. Mild mitral regurgitation by color Doppler. Aortic Valve The aortic valve is mildly sclerotic. Tricuspid Valve Mild tricuspid regurgitation by color Doppler. There is mild pulmonary hypertension. The pulmonary pressure (RVSP) is 45 mmHg. Pulmonic Valve The pulmonic valve is not well visualized. Pericardial Effusion Trivial global pericardial effusion. Pleural Effusion No evidence of pleural effusion. Contractility Score LV regional wall motion:(0-Non visualized 1-Normal 2-Hypokinesis 3-Akinesis 4-Dyskinesis 5-Aneurysm) Signature dtt: Kat Newton dtd: 01/24/17 0745 Physician Self Edit
[2017-01-23 21:11] LABS: BASOPHIL % 0.9 %; EOSINOPHIL # 0.1 K/uL (0.0-0.5); EOSINOPHIL % 3.4 %; HEMATOCRIT 46.2 % (33.0-46.0); HEMOGLOBIN 15.2 g/dL (10.0-15.0); IMMATURE GRANULOCYTE % 0.3 %; LYMPHOCYTE # 0.8 K/uL (0.8-4.0); LYMPHOCYTE % 25.6 %; MCH 35.4 pg (27.0-34.0); MCHC 32.9 gm/dL (32.0-36.5); MCV 107.7 fl (83.0-98.0); MONOCYTE # 0.6 K/uL (0.0-1.0); MONOCYTE % 17.8 %; MPV 11.5 fl (9.4-12.4); NEUTROPHIL # (ANC) 1.7 K/uL (1.8-7.8); NRBC % 0 /100WBC (0-0.00); PLATELET COUNT 112 K/uL (150-450); RBC 4.29 M/uL (3.50-5.50); RDW-CV 14.6 % (11.9-14.6); WBC 3.2 K/uL (4.0-11.0)
[2017-01-23 21:18] LABS: INR - (THERAPEUTIC) 1.05 (0.92-1.07)
[2017-01-23] MEDS ORDERED: KEFLEX500 MG PO (21:41)
[2017-01-23] MEDS ORDERED: NEOSPORIN OIN14.2 GM TOP (21:52)
[2017-01-23] MEDS ORDERED: NORCO 5-325 TA1 EACH PO ×3 (22:03→22:05)
[2017-01-23] MEDS ORDERED: SENNA-S TABLET1 EACH PO (22:06)
[2017-01-23] MEDS ORDERED: VOLTAREN 1% GE100 GM TOP (22:11)
[2017-01-24 03:10] LABS: BASOPHIL % 1.2 %; EOSINOPHIL # 0.3 K/uL (0.0-0.5); EOSINOPHIL % 7.9 %; HEMOGLOBIN 14.6 g/dL (10.0-15.0); IMMATURE GRANULOCYTE % 0.3 %; LYMPHOCYTE # 1.3 K/uL (0.8-4.0); LYMPHOCYTE % 38.6 %; MCH 34.8 pg (27.0-34.0); MCHC 33.2 gm/dL (32.0-36.5); MONOCYTE # 0.6 K/uL (0.0-1.0); MONOCYTE % 16.7 %; MPV 10.7 fl (9.4-12.4); NEUTROPHIL # (ANC) 1.2 K/uL (1.8-7.8); NEUTROPHIL % 35.3 %; NRBC % 0 /100WBC (0-0.00); PLATELET COUNT 104 K/uL (150-450); RBC 4.19 M/uL (3.50-5.50); RDW-CV 14.6 % (11.9-14.6); WBC 3.3 K/uL (4.0-11.0)
[2017-01-24 03:30] LABS: ANION GAP 9.2 (10.0-19.0); BLOOD UREA NITROGEN 15 mg/dL (6-24); CHLORIDE 108 mMol/L (96-110); CO2 27 mMol/L (22-32); CREATININE 0.7 mg/dL (0.5-1.1); ESTIMATED GFR (MDRD EQUATION) > 60; MAGNESIUM 1.8 mg/dL (1.8-2.6); POTASSIUM 3.2 mMol/L (3.7-5.1); SODIUM 141 mMol/L (135-145)
[2017-01-24 03:32] LABS: CALCIUM 7.4 mg/dL (8.5-10.5)
[2017-01-25 02:22] LABS: HEMATOCRIT 41.2 % (33.0-46.0); HEMOGLOBIN 13.6 g/dL (10.0-15.0); MCH 34.3 pg (27.0-34.0); MCV 103.8 fl (83.0-98.0); MPV 10.4 fl (9.4-12.4); PLATELET COUNT 87 K/uL (150-450); RBC 3.97 M/uL (3.50-5.50); RDW-CV 14.2 % (11.9-14.6); WBC 2.7 K/uL (4.0-11.0)
[2017-01-25 02:40] LABS: ANION GAP 8.7 (10.0-19.0); BLOOD UREA NITROGEN 14 mg/dL (6-24); CHLORIDE 109 mMol/L (96-110); CO2 27 mMol/L (22-32); CREATININE 0.6 mg/dL (0.5-1.1); ESTIMATED GFR (MDRD EQUATION) > 60; POTASSIUM 3.7 mMol/L (3.7-5.1); SODIUM 141 mMol/L (135-145)
[2017-01-25 02:49] LABS: CALCIUM 6.9 mg/dL (8.5-10.5)
[2017-01-25 03:15] LABS: ABSOLUTE NEUTROPHIL CT (ANC) 0.8 K/uL (1.8-7.8); LYMPHOCYTE # 1.3 K/uL (0.8-4.0); LYMPHOCYTE % 45 %; MONOCYTE # 0.3 K/uL (0.0-1.0); SEGMENTED NEUTROPHIL # 0.8 K/uL (1.8-7.8); SEGMENTED NEUTROPHIL % 29 %
[2017-01-26 05:25] LABS: HEMATOCRIT 41.1 % (33.0-46.0); HEMOGLOBIN 13.9 g/dL (10.0-15.0); MCH 34.8 pg (27.0-34.0); MCHC 33.8 gm/dL (32.0-36.5); MPV 10.6 fl (9.4-12.4); RBC 3.99 M/uL (3.50-5.50); RDW-CV 13.8 % (11.9-14.6); WBC 2.3 K/uL (4.0-11.0)
[2017-01-26 05:30] LABS: PLATELET COUNT 106 K/uL (150-450)
[2017-01-26 05:42] LABS: INR - (THERAPEUTIC) 1.1 (0.92-1.07); PROTIME 11.6 SECONDS (9.8-11.4)
[2017-01-26 05:47] LABS: ALBUMIN 2.7 gm/dL (3.5-5.0); ANION GAP 11.6 (10.0-19.0); CREATININE 0.5 mg/dL (0.5-1.1); POTASSIUM 3.6 mMol/L (3.7-5.1); TOTAL BILIRUBIN 0.2 mg/dL (0.0-1.5); TOTAL PROTEIN 5.1 g/dL (6.0-8.4)
[2017-01-26 05:51] LABS: CALCIUM 7.1 mg/dL (8.5-10.5)
[2017-01-26 07:09] LABS: ABSOLUTE NEUTROPHIL CT (ANC) 0.7 K/uL (1.8-7.8); BANDED NEUTROPHIL # 0.1 K/uL (0.0-0.1); BANDED NEUTROPHILS % 3 %; LYMPHOCYTE # 1.2 K/uL (0.8-4.0); LYMPHOCYTE % 40 %; MONOCYTE # 0.3 K/uL (0.0-1.0); SEGMENTED NEUTROPHIL # 0.6 K/uL (1.8-7.8); SEGMENTED NEUTROPHIL % 27 %
[2017-01-27 02:30] LABS: HEMATOCRIT 40.5 % (33.0-46.0); MCH 33.6 pg (27.0-34.0); MCHC 32.1 gm/dL (32.0-36.5); MCV 104.7 fl (83.0-98.0); MPV 10.4 fl (9.4-12.4); PLATELET COUNT 96 K/uL (150-450); RBC 3.87 M/uL (3.50-5.50); RDW-CV 14.6 % (11.9-14.6); WBC 2.2 K/uL (4.0-11.0)
[2017-01-27 02:48] LABS: ALBUMIN 2.5 gm/dL (3.5-5.0); ALK PHOS 140 IU/L (33-138); ALT 35 IU/L (12-78); ANION GAP 9.4 (10.0-19.0); AST 16 IU/L (10-40); BLOOD UREA NITROGEN 10 mg/dL (6-24); CHLORIDE 114 mMol/L (96-110); CO2 22 mMol/L (22-32); CREATININE 0.5 mg/dL (0.5-1.1); POTASSIUM 3.4 mMol/L (3.7-5.1); SODIUM 142 mMol/L (135-145); TOTAL BILIRUBIN 0.2 mg/dL (0.0-1.5)
[2017-01-27 02:57] LABS: CALCIUM 6.8 mg/dL (8.5-10.5); TOTAL PROTEIN 4.7 g/dL (6.0-8.4)
[2017-01-27 03:27] LABS: BANDED NEUTROPHILS % 2 %; LYMPHOCYTE # 0.8 K/uL (0.8-4.0); LYMPHOCYTE % 36 %; MONOCYTE # 0.3 K/uL (0.0-1.0); SEGMENTED NEUTROPHIL % 44 %
[2017-01-28 04:34] LABS: BASOPHIL % 1.1 %; EOSINOPHIL # 0.1 K/uL (0.0-0.5); EOSINOPHIL % 1.8 %; HEMATOCRIT 38.6 % (33.0-46.0); HEMOGLOBIN 12.5 g/dL (10.0-15.0); IMMATURE GRANULOCYTE % 0.4 %; LYMPHOCYTE # 0.9 K/uL (0.8-4.0); LYMPHOCYTE % 31.4 %; MCH 34.2 pg (27.0-34.0); MCHC 32.4 gm/dL (32.0-36.5); MCV 105.8 fl (83.0-98.0); MONOCYTE # 0.3 K/uL (0.0-1.0); MONOCYTE % 10.7 %; NEUTROPHIL # (ANC) 1.5 K/uL (1.8-7.8); NEUTROPHIL % 54.6 %; NRBC % 0 /100WBC (0-0.00); PLATELET COUNT 102 K/uL (150-450); RBC 3.65 M/uL (3.50-5.50); RDW-CV 14.6 % (11.9-14.6); WBC 2.7 K/uL (4.0-11.0)
[2017-01-28 04:51] LABS: ANION GAP 8.9 (10.0-19.0); BLOOD UREA NITROGEN 8 mg/dL (6-24); CHLORIDE 113 mMol/L (96-110); CO2 23 mMol/L (22-32); CREATININE 0.5 mg/dL (0.5-1.1); POTASSIUM 3.9 mMol/L (3.7-5.1); SODIUM 141 mMol/L (135-145)
[2017-01-29 06:05] LABS: BASOPHIL % 1.1 %; EOSINOPHIL # 0.1 K/uL (0.0-0.5); EOSINOPHIL % 1.8 %; HEMATOCRIT 37.4 % (33.0-46.0); HEMOGLOBIN 12.3 g/dL (10.0-15.0); IMMATURE GRANULOCYTE % 0.4 %; LYMPHOCYTE # 0.8 K/uL (0.8-4.0); LYMPHOCYTE % 29.5 %; MCH 34.5 pg (27.0-34.0); MCHC 32.9 gm/dL (32.0-36.5); MCV 104.8 fl (83.0-98.0); MONOCYTE # 0.3 K/uL (0.0-1.0); MONOCYTE % 10.5 %; MPV 10.7 fl (9.4-12.4); NEUTROPHIL # (ANC) 1.6 K/uL (1.8-7.8); NEUTROPHIL % 56.7 %; NRBC % 0 /100WBC (0-0.00); PLATELET COUNT 97 K/uL (150-450); RBC 3.57 M/uL (3.50-5.50); RDW-CV 14.6 % (11.9-14.6); WBC 2.8 K/uL (4.0-11.0)
[2017-01-29 06:07] LABS: ANION GAP 8.3 (10.0-19.0); CALCIUM 7.6 mg/dL (8.5-10.5); CREATININE 0.6 mg/dL (0.5-1.1); POTASSIUM 4.3 mMol/L (3.7-5.1)
[2017-01-30 03:10] LABS: BASOPHIL % 1.3 %; EOSINOPHIL # 0.1 K/uL (0.0-0.5); EOSINOPHIL % 1.7 %; HEMATOCRIT 37.4 % (33.0-46.0); HEMOGLOBIN 12.5 g/dL (10.0-15.0); IMMATURE GRANULOCYTE % 0.3 %; LYMPHOCYTE # 0.8 K/uL (0.8-4.0); LYMPHOCYTE % 27.2 %; MCH 35.2 pg (27.0-34.0); MCHC 33.4 gm/dL (32.0-36.5); MCV 105.4 fl (83.0-98.0); MONOCYTE # 0.3 K/uL (0.0-1.0); MONOCYTE % 10.4 %; MPV 10.3 fl (9.4-12.4); NEUTROPHIL # (ANC) 1.8 K/uL (1.8-7.8); NEUTROPHIL % 59.1 %; NRBC % 0 /100WBC (0-0.00); PLATELET COUNT 100 K/uL (150-450); RBC 3.55 M/uL (3.50-5.50); RDW-CV 14.8 % (11.9-14.6)
[2017-01-30 03:29] LABS: ANION GAP 10.4 (10.0-19.0); CALCIUM 7.8 mg/dL (8.5-10.5); CREATININE 0.7 mg/dL (0.5-1.1); POTASSIUM 4.4 mMol/L (3.7-5.1)
[2017-01-31 03:46] LABS: BASOPHIL # 0.1 K/uL (0.0-0.2); BASOPHIL % 1.5 %; EOSINOPHIL # 0.1 K/uL (0.0-0.5); EOSINOPHIL % 2.6 %; HEMATOCRIT 38.3 % (33.0-46.0); HEMOGLOBIN 12.7 g/dL (10.0-15.0); IMMATURE GRANULOCYTE % 0.3 %; LYMPHOCYTE % 29.4 %; MCH 34.8 pg (27.0-34.0); MCHC 33.2 gm/dL (32.0-36.5); MCV 104.9 fl (83.0-98.0); MONOCYTE # 0.6 K/uL (0.0-1.0); MONOCYTE % 16.6 %; MPV 10.1 fl (9.4-12.4); NEUTROPHIL # (ANC) 1.7 K/uL (1.8-7.8); NEUTROPHIL % 49.6 %; NRBC % 0 /100WBC (0-0.00); PLATELET COUNT 115 K/uL (150-450); RBC 3.65 M/uL (3.50-5.50); RDW-CV 14.9 % (11.9-14.6); WBC 3.4 K/uL (4.0-11.0)
[2017-01-31 04:00] LABS: ANION GAP 10.8 (10.0-19.0); CALCIUM 7.7 mg/dL (8.5-10.5); CREATININE 0.7 mg/dL (0.5-1.1); POTASSIUM 3.8 mMol/L (3.7-5.1)
[2017-02-01 04:17] LABS: BASOPHIL # 0.1 K/uL (0.0-0.2); BASOPHIL % 2.1 %; EOSINOPHIL # 0.1 K/uL (0.0-0.5); EOSINOPHIL % 1.8 %; HEMATOCRIT 38.4 % (33.0-46.0); HEMOGLOBIN 12.7 g/dL (10.0-15.0); IMMATURE GRANULOCYTE % 0.4 %; LYMPHOCYTE # 1.2 K/uL (0.8-4.0); LYMPHOCYTE % 44.3 %; MCH 34.5 pg (27.0-34.0); MCHC 33.1 gm/dL (32.0-36.5); MCV 104.3 fl (83.0-98.0); MONOCYTE # 0.4 K/uL (0.0-1.0); MPV 9.8 fl (9.4-12.4); NEUTROPHIL % 36.4 %; NRBC % 0 /100WBC (0-0.00); PLATELET COUNT 114 K/uL (150-450); RBC 3.68 M/uL (3.50-5.50); RDW-CV 14.9 % (11.9-14.6); WBC 2.8 K/uL (4.0-11.0)
[2017-02-01 04:37] LABS: CREATININE 0.7 mg/dL (0.5-1.1)
[2017-02-02 05:11] LABS: ANION GAP 12.9 (10.0-19.0); CALCIUM 7.9 mg/dL (8.5-10.5); CREATININE 0.7 mg/dL (0.5-1.1); POTASSIUM 3.9 mMol/L (3.7-5.1)
[2017-02-03 08:26] LABS: ANION GAP 10.4 (10.0-19.0); CALCIUM 7.7 mg/dL (8.5-10.5); CREATININE 0.7 mg/dL (0.5-1.1)
[2017-02-03 08:27] LABS: POTASSIUM 4.4 mMol/L (3.7-5.1)
[2017-02-04 08:42] LABS: BASOPHIL # 0.1 K/uL (0.0-0.2); BASOPHIL % 1.8 %; EOSINOPHIL % 0.6 %; HEMATOCRIT 43.8 % (33.0-46.0); HEMOGLOBIN 14.4 g/dL (10.0-15.0); IMMATURE GRANULOCYTE % 0.3 %; LYMPHOCYTE % 30.9 %; MCHC 32.9 gm/dL (32.0-36.5); MCV 106.3 fl (83.0-98.0); MONOCYTE # 0.3 K/uL (0.0-1.0); MONOCYTE % 9.8 %; NEUTROPHIL # (ANC) 1.9 K/uL (1.8-7.8); NEUTROPHIL % 56.6 %; NRBC % 0 /100WBC (0-0.00); RBC 4.12 M/uL (3.50-5.50); WBC 3.3 K/uL (4.0-11.0)
[2017-02-04 08:44] LABS: PLATELET COUNT 143 K/uL (150-450)
[2017-02-04 09:00] LABS: ANION GAP 8.2 (10.0-19.0); CALCIUM 7.9 mg/dL (8.5-10.5); POTASSIUM 4.2 mMol/L (3.7-5.1)
[2017-02-05 03:15] LABS: INR - (THERAPEUTIC) 1.24 (0.92-1.07); PROTIME 13.1 SECONDS (9.8-11.4)
[2017-02-05 03:20] LABS: ANION GAP 9.4 (10.0-19.0); CREATININE 1.2 mg/dL (0.5-1.1); POTASSIUM 4.4 mMol/L (3.7-5.1)
[2017-02-06 05:42] LABS: INR - (THERAPEUTIC) 1.34 (0.92-1.07); PROTIME 14.1 SECONDS (9.8-11.4)
[2017-02-06 05:52] LABS: ANION GAP 9.9 (10.0-19.0); CALCIUM 7.7 mg/dL (8.5-10.5); CREATININE 0.9 mg/dL (0.5-1.1); POTASSIUM 3.9 mMol/L (3.7-5.1)
[2017-02-07 06:11] LABS: BASOPHIL % 1.1 %; EOSINOPHIL % 0.5 %; HEMATOCRIT 39.3 % (33.0-46.0); HEMOGLOBIN 12.9 g/dL (10.0-15.0); IMMATURE GRANULOCYTE % 0.3 %; LYMPHOCYTE # 0.9 K/uL (0.8-4.0); LYMPHOCYTE % 24.6 %; MCH 34.7 pg (27.0-34.0); MCHC 32.8 gm/dL (32.0-36.5); MCV 105.6 fl (83.0-98.0); MONOCYTE # 0.3 K/uL (0.0-1.0); MONOCYTE % 6.7 %; MPV 10.1 fl (9.4-12.4); NEUTROPHIL # (ANC) 2.5 K/uL (1.8-7.8); NEUTROPHIL % 66.8 %; NRBC % 0 /100WBC (0-0.00); PLATELET COUNT 123 K/uL (150-450); RBC 3.72 M/uL (3.50-5.50); RDW-CV 14.6 % (11.9-14.6); WBC 3.7 K/uL (4.0-11.0)
[2017-02-07 06:22] LABS: INR - (THERAPEUTIC) 2.28 (0.92-1.07); PROTIME 24.1 SECONDS (9.8-11.4)
[2017-02-07 06:28] LABS: CALCIUM 7.7 mg/dL (8.5-10.5); CREATININE 0.8 mg/dL (0.5-1.1)
== END 2017-02-07 14:45 | DRG 248 ==
LOC: GRAD 15:33 → GPCU 17:35
PROVIDERS: Internal Medicine Cardiovascular Disease; ADMIT Family Medicine
DX: I11.0 Hypertensive heart disease with heart failure (principal); I21.4 Non-ST elevation (NSTEMI) myocardial infarction; J96.21 Acute and chronic respiratory failure with hypoxia; C90.01 Multiple myeloma in remission; I50.32 Chronic diastolic (congestive) heart failure; I27.2 Other secondary pulmonary hypertension; I25.10 Atherosclerotic heart disease of native coronary artery without angina pectoris; I48.91 Unspecified atrial fibrillation; I45.10 Unspecified right bundle-branch block; E11.9 Type 2 diabetes mellitus without complications; E87.6 Hypokalemia
CPT/HCPCS: C1725; C1769; C1874; C1887; C1894; C9600; J1327; J1644; J1940; J2250; J3010; J7030; J7040; J7050; Q9967

== ENCOUNTER → 2017-02-09 | Outpatient (CLI) | payer MEDICARE, OTHER, MEDICAID ==
[~2017-02-09] MED LIST changes: +COREG25 MG PO; +COUMADIN ** 9/62 MG PO; +KEFLEX500 MG PO; +LEVEMIR100 UNIT/1 SUB-Q; +NEOSPORIN OIN14.2 GM TOP; +PLAVIX75 MG PO; +SENNA-S TABLET1 EACH PO; +VOLTAREN 1% GE100 GM TOP
[2017-02-09 07:03] LABS: INR - (THERAPEUTIC) 1.41 (0.92-1.07); PROTIME 14.9 SECONDS (9.8-11.4)
== END | disposition disaster alternative care site (69) ==
LOC: LJOHN2 06:48
PROVIDERS: Family Medicine
DX: I50.9 Heart failure, unspecified (principal)

== ENCOUNTER → 2017-02-22 | Outpatient (CLI) | payer MEDICARE, OTHER, MEDICAID ==
[2017-02-22 14:43] LABS: PROTIME 67.5 SECONDS (9.8-11.4)
[2017-02-22 14:45] LABS: INR - (THERAPEUTIC) 6.31 (0.92-1.07)
== END ==
LOC: LJOHN2 14:29
PROVIDERS: Family Medicine
DX: J90 Pleural effusion, not elsewhere classified (principal); I48.91 Unspecified atrial fibrillation

== ENCOUNTER → 2017-02-26 | Outpatient (CLI) | payer MEDICARE, OTHER, MEDICAID ==
[2017-02-26 09:08] LABS: INR - (THERAPEUTIC) 1.17 (0.92-1.07); PROTIME 12.3 SECONDS (9.8-11.4)
== END ==
LOC: LJOHN2 08:53
PROVIDERS: Family Medicine
DX: D63.0 Anemia in neoplastic disease (principal); I21.4 Non-ST elevation (NSTEMI) myocardial infarction; I48.91 Unspecified atrial fibrillation

== ENCOUNTER 2017-02-28 12:35 | Inpatient (IN) | payer MEDICARE, OTHER, MEDICAID ==
[~2017-02-28] VITALS: Ht 172.7 cm; Wt 76.4 kg
--- NOTE | ~2017-02-28 | HP ---
PATIENT'S NAME: DENYS STEPHENSON [facility] AGE: 76 Y [address] ROOM: [id number] [place], [place] [address] LOCATION: GPCU ADMIT DATE: 02/28/2017 History & Physical DISCHARGE DATE: FAMILY PHYSICIAN: Prakash Zelaya MD ATTENDING PHYSICIAN: Jem Lynn DATE OF SERVICE: CHIEF COMPLAINT: Chest pain. HISTORY OF PRESENT ILLNESS: The patient is a 76-year-old female who came into [facility] Emergency Room with complaints of chest pain. She was hospitalized from 01/23/2017 to 02/07/2017 with acute hypoxia and elevated D-dimer. She had a negative CT scan for pulmonary embolic disease at that time; did have a heart cath, did have a stent placed. She had a 75% lesion in the distal LAD that was reduced to 0% lesion with GERDA-3 flow noted. It should be noted she also had a multiple other disease processes going on with a 30% proximal LAD, 40% mid LAD, 20% 1st diagonal, 50% 1st obtuse marginal in the midsection, and 20% circumflex. She had a 40% stenosis in that RCA as well. She did have some new-onset AFib/flutter at that time as well. She did have bilateral thoracentesis done and attempted cardioversion on 02/03/2017 as well. She was at her place of residence at [facility] and doing well when she started having some chest discomfort today. She describes this as being more intense to what she has had in the past. She says this is heavier than what she had versus the last time she is in the hospital. She has not been very active over the last month; so certainly, she has increased risk of pulmonary embolic disease as well. She just has a touch of discomfort at this time, but in most past is chest pain-free. PAST MEDICAL HISTORY: Significant for new-onset atrial fibrillation, chronic diastolic congestive heart failure with her last echocardiogram being done at her last hospitalization in January, which showed an EF of 65%. She has a concentric LVH as well as a diastolic impairment of normal relaxation. She had moderate calcification in the mitral valve and moderate mitral annular calcification. There is also some mild pulmonary hypertension. Also, significant for insulin- dependent type 2 diabetes mellitus with recent A1c of 5.7, hypertension, multiple myeloma, anxiety, hypokalemia, and urinary incontinence. She also has history of GERD and a seizure disorder. PAST SURGICAL HISTORY: She has had back surgery, carpal tunnel release, neck surgery, excision of 10th rib lesion rib lesion by Dr. Nesbitt, shoulder surgery and total knee PATIENT'S NAME: DENYS STEPHENSON [facility] AGE: 76 Y [address] ROOM: [place] [address] [facility] ADMIT DATE: 02/28/2017 History & Physical DISCHARGE DATE: FAMILY PHYSICIAN: Prakash Zelaya MD ATTENDING PHYSICIAN: Jem Lynn. SOCIAL HISTORY: She never smoked and never drank alcohol. CHRONIC MEDICATIONS: Include: 1. Acetaminophen 325 every 4 hours as needed. 2. Albuterol 1 nebulizer q.4 h. p.r.n. 3. Norvasc 10 mg one p.o. daily. 4. Aspirin 325 one p.o. b.i.d. 5. Tessalon Perles 200 mg every 8 hours p.r.n. 6. Carvedilol 25 mg b.i.d. 7. Plavix 75 mg daily. 8. Dexamethasone 4 mg every Sunday. 9. Docusate 200 mg once a day p.r.n. and then 100 mg once a day. 10. Citalopram 20 mg once a day. 11. Ferrous sulfate 325 twice daily. 12. Fluticasone 2 sprays in each nostril daily. 13. Jemison 1 p.o. b.i.d. 5/325 and then she could do 1 or 2 of those every 4 hours p.r.n. 14. Insulin 0 to 9 units subcu before meals and bedtime p.r.n. use of sliding scale. She also gets Levemir 10 units subcu q.h.s. 15. Lactobacillus 1 capsule daily. 16. Revlimid capsule 15 mg one a day. 17. Keppra a 1000 mg b.i.d. 18. Levothyroxine 0.137 daily. 19. Imodium p.r.n. 20. Cozaar 25 mg once a day. 21. Zofran p.r.n. 22. Oxygen at nighttime to keep sats greater than 90%. 23. Pantoprazole 40 mg once a day. 24. Dilantin 200 mg two 100 mg capsules in the morning and then two of the 100 mg capsules every Sunday, Sunday, and Sunday0 and three on Sunday, Sunday, , and Sunday. 25. Potassium 30 mEq twice daily. 26. Seroquel 50 mg daily. 27. Senna 2 tablets daily. 28. VESIcare 5 mg daily. 29. Bactrim 1 p.o. on Sunday and . 30. Coumadin 3.5 mg everyday. ALLERGIES: SHE HAS ALLERGIES TO NIACIN, MORPHINE, AND STRAWBERRIES. PATIENT'S NAME: DENYS STEPHENSON [facility] AGE: 76 Y [address] ROOM: [id number] [place], [place] [address] [facility] ADMIT DATE: 02/28/2017 History & Physical DISCHARGE DATE: FAMILY PHYSICIAN: Prakash Zelaya MD ATTENDING PHYSICIAN: Jem Lynn REVIEW OF SYSTEMS: As per HPI, otherwise noncontributory; specifically, she denies any dysuria, frequency, or urgency. No melena, hematochezia, or bright red blood per rectum. PHYSICAL EXAMINATION: GENERAL: The patient is a nontoxic-appearing female in no acute distress. VITAL SIGNS: Her temperature is 97.8, pulse 80, respirations 16, blood pressure 106/61, and O2 saturation 98% on 2 L of oxygen. Weight is 160 pounds. HEENT: Head: Normocephalic and atraumatic. Ears: TMs are intact bilaterally. Nose patent. Throat clear. NECK: Supple without lymphadenopathy, JVD, thyromegaly, or bruits. HEART: Regular rate and rhythm with a grade 2/6 systolic murmur. LUNGS: Diminished breath sounds toward the bases bilaterally with poor breath sounds throughout. EXTREMITIES: A 1 to 2+ edema on the right and negative on the left. LABORATORY DATA: Troponin is 0.040, CPK-MB is elevated at 3.7, and CPK is 85. Urine does show 50 to 100 white cells, 5 to 10 reds, 0 to 2 epi's, and negative for bacteria. We will make sure culture get done on that. Occult blood is negative. Pro- oleg is normal at less than 0.05. Chest x-ray shows low lung volumes with bibasilar atelectasis. There is a small right effusion present on the right. Sodium 140, potassium 4.4, chloride 110, CO2 24, glucose 121, BUN 14, creatinine 0.6, total protein 5.7, albumin 2.8, bilirubin 0.3, alk phos 185, AST 57, ALT 96, estimated GFR is 90, CPK is 93, CPK-MB is 3.4 on admit, and troponin less than 0.040. White cell count is 2.9, hemoglobin 12.7, hematocrit 39.0%, and platelet count 101,000. Her lactate is 0.9. ASSESSMENT AND PLAN: A 76-year-old white female with the following problem list: 1. Chest pain. Certainly, recurrence of ischemia from the heart is major consideration including one of the aforementioned vessels that are partially blocked versus possibly even an in-stent stenosis. Analytical Data Scientist has been consulted. We will plan to do a D-dimer; and if that is positive, we will go ahead and repeat her CT scan. 2. Acute hypoxic respiratory failure. Currently, on 2 L of oxygen. This is secondary to congestive heart failure as outlined below. 3. [id number]-[id number] heart failure with a preserved of ejection fraction with known diastolic dysfunction on the echo with an ejection fraction greater than 60% and BNP is elevated higher than when she went home and she is being diuresed by Cardiology. 4. Insulin-dependent type 2 diabetes mellitus. We will go ahead and put on a sliding scale and continue there. PATIENT'S NAME: DENYS STEPHENSON [facility] AGE: 76 Y [address] ROOM: [address] [address] [facility] ADMIT DATE: 02/28/2017 History & Physical DISCHARGE DATE: FAMILY PHYSICIAN: Prakash Zelaya MD ATTENDING PHYSICIAN: Jem Lynn 5. Pyuria. We will go ahead and culture the urine, put her on some Ceftin, there is no bacteria so that might not show anything, but we will cover bases with that. 6. History of multiple myeloma, currently stable. 7. Atrial fibrillation, she is currently stable and rate-controlled at this point. 8. History of hypokalemia, again that looks great at 4.4. 9. History of anxiety. She is clinically stable at this point. Dr. Zelaya will assume care in the morning. The patient voiced understanding of that plan. JEM LYNN MD TAB/modl /[id number] D: [id number] T: [id number] HISTORY & PHYSICAL
--- NOTE | ~2017-02-28 | CON ---
PATIENT'S NAME: DENYS VEGA [facility] AGE: 76 Y [address] ROOM: [address] [place], [place] [address] LOCATION: GPCU ADMIT DATE: 02/28/2017 Consultation DISCHARGE DATE: FAMILY PHYSICIAN: Prakash Zelaya MD ATTENDING PHYSICIAN: Juan Lynn DATE OF CONSULTATION: 02/28/2017 REFERRING PHYSICIAN: Kat Burgess MD HISTORY OF PRESENT ILLNESS: This is a very nice 76-year-old woman who was transferred today from [facility] because she developed chest pain. The description I have from the emergency room physician note is that the patient complained of a burning sensation in the right chest that radiated to the left. She had a recent stent to the distal left anterior descending artery. She was transferred to the emergency department. By the time she reached the hospital, she was chest pain free. The initial cardiac enzymes were normal as well as the electrocardiogram showed no acute ischemic changes. Apparently, she did not receive any nitroglycerin as far as I can determine. We will have to assume that she is compliant with her medications. However, she has chronic atrial fibrillation at least until since July 2016, and her INR today is 1.2. She was hospitalized here from 01/23/2017 to 02/07/2017 with large pleural effusions, diastolic heart failure, atrial fibrillation, and non- STEMI. She was diuresed, had thoracentesis on the right, and cardiac catheterization that showed severe stenosis for the apical portion of the left anterior descending artery which I stented with a drug-eluting stent. The procedure was performed on January 26. She was placed on aspirin 81 mg, clopidogrel 75 mg, and heparin to transition to warfarin. She was found to be quite sensitive to clopidogrel with a P2Y12 of 82 PRU. PAST MEDICAL HISTORY: Significant for multiple myeloma which has been treated with chemotherapy since at least 2014 under the direction of Oncology colleagues. She also has diabetes type 2, seizure disorder, and she is wheelchair bound due to falls. She lives in a halfway after she lost her . MEDICATIONS: Reviewed and include: 1. Acetaminophen. 2. Albuterol. 3. Amlodipine. 4. Aspirin 325 b.i.d. which I decreased. 5. Benzonatate. 6. Carvedilol. 7. Clopidogrel. PATIENT'S NAME: DENYS VEGA [facility] AGE: 76 Y [address] ROOM: [place] [address] LOCATION: GPCU ADMIT DATE: 02/28/2017 Consultation DISCHARGE DATE: FAMILY PHYSICIAN: Prakash Zelaya MD ATTENDING PHYSICIAN: Juan Lynn 8. Cyanocobalamin. 9. Dexamethasone. 10. Docusate. 11. Escitalopram. 12. Ferrous sulfate. 13. Fluticasone. 14. Hydrocodone and acetaminophen. 15. Insulin aspartame and detemir. 16. Lenalidomide. 17. Lactobacillus. 18. Levetiracetam. 19. Levothyroxine. 20. Loperamide. 21. Losartan. 22. Magnesium hydroxide. 23. Neosporin ointment. 24. Ondansetron. 25. Oxygen. 26. Pantoprazole. 27. Phenytoin. 28. Potassium chloride. 29. Quetiapine. 30. Sennosides. 31. Solifenacin. 32. Sulfamethoxazole Trimethoprim. 33. Warfarin. REVIEW OF SYSTEMS: Other than what is mentioned in the history of present illness is negative. SOCIAL HISTORY: Described. The patient is a never smoker and does not drink. No illegal drugs. FAMILY HISTORY: Noncontributory. PHYSICAL EXAMINATION: GENERAL: Pleasant but appears to have some memory loss as she does not completely remember what transpired until she came to the hospital. VITAL SIGNS: Blood pressure 106/61, pulse 88, and temperature is 97.8. NECK: No obvious jugular venous distention. LUNGS: Decreased breath sounds in the bases bilaterally. HEART: Irregular first and second heart sounds. ABDOMEN: Soft. Nontender. EXTREMITIES: Lower extremities; there is about 2+ edema on the right side. PATIENT'S NAME: DENYS VEGA [facility] AGE: 76 Y [address] ROOM: [place] [address] LOCATION: GPCU ADMIT DATE: 02/28/2017 Consultation DISCHARGE DATE: FAMILY PHYSICIAN: Prakash Zelaya MD ATTENDING PHYSICIAN: Juan Lynn IMAGING DATA: Electrocardiogram shows atrial fibrillation with right bundle, low voltage in the limb leads. No acute ST depression is noted. Enzymes are negative. Creatinine is normal. Procalcitonin is negative. Occult blood is negative. Hemoglobin is 12.7, WBC is 2.9. Arterial blood gas: pH of 7.28, pCO2 of 53, and pO2 of 35, obviously it is a venous sample. Chest x-ray shows volume loss, [id number] effusion on the right. IMPRESSION AND PLAN: We have to rule out pulmonary embolism since the patient is bed-bound and not anticoagulated and appears to have unequal lower extremity edema. I will send a stat D-dimer. Until we have the results, start her on Lovenox 40, full anticoagulation, if we prove to have pulmonary embolism. If this is not the case, we have to assume this is unstable angina. The patient after reviewing the catheterization does have remaining severe stenosis of the circumflex so we will take her to the catheterization lab. Diastolic congestive heart failure as her proBNP is higher today, more than 4000, than when she left the hospital. Continue rate control for the atrial fibrillation. Thank you for allowing me to participate in the care of Ms. Vega. This plan was discussed with the patient and Dr Lynn who is agreeable. VERONICAAYOTIS-MANI BURGESS MD PE/modl /[id number] d: 02/28/17 2153 t: 03/02/17 1143, CONSULTATION REPORT
--- NOTE | ~2017-02-28 | ER ---
PATIENT'S NAME: DENYS STEPHENSON [facility] AGE: 76 Y [address] ROOM: [address] [address] LOCATION: GPCU ADMIT DATE: 02/28/2017 ER/Outpatient Report DISCHARGE DATE: FAMILY PHYSICIAN: Prakash Zelaya MD ATTENDING PHYSICIAN: Juan Lynn Time Of Arrival: 1235 hours. Time Of Evaluation: 1235 hours. CHIEF COMPLAINT: Chest pain. HISTORY OF PRESENT ILLNESS: The patient is a 76-year-old female who presents to the emergency department today with chief complaint of chest pain. She reports this started last night. It is a burning type pain on the right side of her chest. Radiates to her left side. Does have some shortness of breath and diaphoresis with this. She does report some nausea. No vomiting. Denies any fevers. Does have some chills. She reports the pain is relieved upon arrival here in the emergency department. It is currently 0/10 in severity and maximum of 9/10 in severity. PAST MEDICAL HISTORY: Osteomyelitis, multiple myeloma, congestive heart failure, insulin-dependent diabetes, coronary artery disease, hypertension, anemia, and HI. PAST SURGICAL HISTORY: Stents, cholecystectomy, back surgery x6 while in [place], neck surgery, rotator cuff, bilateral cataract, hysterectomy, tonsillectomy, adenoidectomy, right femur fracture, knee replacement. SOCIAL HISTORY: The patient currently lives at [facility]. Denies any tobacco, alcohol, or illicit drug use. ALLERGIES: MORPHINE AND NIACIN. MEDICATIONS: Please see list. PRIMARY CARE DOCTOR: Prakash Zelaya MD. REVIEW OF SYSTEMS: All systems are reviewed by myself and are negative with the exception of PATIENT'S NAME: DENYS STEPHENSON [facility] AGE: 76 Y [address] ROOM: [address] [place] [id number] LOCATION: GPCU ADMIT DATE: 02/28/2017 ER/Outpatient Report DISCHARGE DATE: FAMILY PHYSICIAN: Prakash Zelaya MD ATTENDING PHYSICIAN: Juan Lynn those discussed in HPI and past medical history. PHYSICAL EXAMINATION: VITAL SIGNS: Weight 74 kg. Blood pressure 103/59, pulse 86, respiratory rate 20, temperature 97, oxygen saturation 94% on 2 L nasal cannula. GENERAL: The patient is a 76-year-old female who appears older than stated age. HEENT. Head is normocephalic, atraumatic. Pupils are equal, round, and reactive to light. NECK: Supple. There is no nuchal rigidity. CARDIOVASCULAR: Regular rate and rhythm. No murmurs, rubs, or gallops. LUNGS: Diminished at the bases. ABDOMEN: Soft, nontender, and nondistended. No rebound, rigidity, or guarding. MUSCULOSKELETAL: The patient moves all 4 extremities. SKIN: Warm and dry without rashes or lesions noted. LABORATORY DATA AND X-RAYS: Labs and x-rays are obtained. EKG is obtained, interpreted by myself, reveals an atrial fibrillation with a rate 83, left axis deviation, QTc of 468, otherwise, normal intervals. No ST elevation or ST depression. T-wave inversions in venous blood gas 7.28/53/35/25/-2.4, lactate 0.9. CBC: White blood cell count 2.9, platelet 101, otherwise unremarkable. ANC of 1.6. PTT is 29, PT is 12.7, INR is 1.2. CMP is unremarkable. Calcium 7.3, alkaline phosphatase 185, AST is 53, ALT is 96. Mag is normal. CK is normal. CK-MB is normal. Troponin is less than 0.04. ProBNP is 4607, procalcitonin is less than 0.05. Chest x-ray is obtained, is interpreted by myself, does show a right pleural effusion with low lung volumes. IMPRESSION: 1. Acute on chronic diastolic congestive heart failure with fluid overload. 2. Right pleural effusion with history of recent thoracentesis. 3. Chest pain, rule out acute coronary syndrome. 4. Acute hypoxic respiratory failure. Requiring 2 L nasal cannula. 5. Subtherapeutic INR. 6. Elevated liver enzymes. 7. Initial visit. EMERGENCY DEPARTMENT COURSE: The patient brought back to the examination room. Seen and evaluated by myself. IV is established. Laboratory analysis and imaging are obtained as described above. The patient is given three baby aspirin orally. Results of the testing are obtained. The patient's old records are reviewed. The patient was recently in the hospital from 01/23 to 02/07 of this year. She was noted to have large bilateral pleural effusions. She had new onset atrial PATIENT'S NAME: DENYS STEPHENSON [facility] AGE: 76 Y [address] ROOM: [facility] [place] [address] [facility] ADMIT DATE: 02/28/2017 ER/Outpatient Report DISCHARGE DATE: FAMILY PHYSICIAN: Prakash Zelaya MD ATTENDING PHYSICIAN: Juan Lynn fibrillation as well as an EF of 60% with mildly reduced right ventricular as well as pulmonary hypertension. She also underwent heart catheterization of January 26 that did show three vessel disease with a drug-eluting stent placement to the LAD. The results were discussed with the patient. I have discussed the results with Dr. Lynn, who is on-call for the patient's primary care doctor, Dr. Zelaya. We will admit the patient for further evaluation, treatment, and management to the hospital. The patient was given 20 mg of Lasix IV. Her blood pressure was marginal less, only 20 was given, at 91/55. DISPOSITION: The patient is admitted under the care of Dr. Lynn in stable condition. DO LACEY SÁNCHEZ/modl /[id number] d: 02/28/17 1823 t: 03/02/17 0206, OUTPATIENT REPORT
--- NOTE | ~2017-02-28 | CATH ---
Cardiac Diagnostic + PCI Report Demographics Patient Name SEEMA Mera Gender Female Date of 1940 Age 76 year(s) Patient Number [id number] Date of Study 03/01/2017 Visit Number [id number] Room Number G6[address] [place] [id number] Ht 172.72 cm Wt 76.3 kg Referring Nathalie Richmond Primary Physician Physician Performing Efstratiou Secondary Physician Physician Tricia Stoddard MD Diagnostic Efstratiou Assisting Physician Physician Tricia Stoddard MD Interventional Efstratiou Physician Theater Technician Physician Tricia Stoddard MD Findings and Conclusions Diagnostic Findings and Conclusion Patent recent stent to distal LAD. Significant stenosis to Ramus and mid-LAD with ischemic iFR Diagnostic Recommendations PCI to Ramus and mid-LAD. Interventional Findings and Conclusion Successful CATALINO to Ramus and mid-LAD. Interventional Recommendations Continue aspirin for one month. Plavix and warfarin for 11 months. Procedure Description The patient was brought to the diagnostic cardiac catheterization-EP laboratory in the fasting, non-sedated state. Informed consent was obtained in the written and verbal form after the risks and benefits were explained. The patient had no further questions and agreed to proceed. The planned puncture-incision site(s) were shaved and prepped with ChloraPrep and draped in the usual sterile manner. Pain control medications were delivered by a registered nurse under physician guidance. Surface ECG rhythm, blood pressure measurement, and pulse oximetry were monitored throughout the procedure. Arterial access. The access site was infiltrated with lidocaine. The vessel was entered with the Seldinger technique. A sheath was advanced into the vessel and used for catheter placement. Left heart catheterization. A catheter was advanced across the aortic valve to the left ventricle under fluoroscopic guidance. Resting hemodynamics were obtained. Selective right coronary angiography. A catheter was advanced into the right coronary vessel ostium under fluoroscopic guidance. Contrast was injected by hand. Images were obtained in multiple projections. Selective left coronary angiography. A catheter was advanced into the left coronary vessel ostium under Fluoroscopic guidance. Contrast was injected by hand. Images were obtained in multiple projections. iFR measurement was performed. The vessel was entered with a guiding catheter. The iFR wire was normalized and then advanced across the lesion. Measurements were taken. Angioplasty and Stent Placement: A guiding catheter was used to intubate the vessel. A 0.14 wire was then used to cross the lesion. A balloon catheter was placed across the lesion and inflated. The balloon catheter was then removed. A Drug Eluting Stent was placed and inflated. Post placement angiograms were performed. iFR measurement was performed. The vessel was entered with a guiding catheter. The iFR wire was normalized and then advanced across the lesion. Measurements were taken. Angioplasty and Stent Placement: A guiding catheter was used to intubate the vessel. A 0.14 wire was then used to cross the lesion. A balloon catheter was placed across the lesion and inflated. The balloon catheter was then removed. A Drug Eluting Stent was placed and inflated. Post placement angiograms were performed. Arterial artery hemostasis was achieved. The patient was transferred to a regular nursing floor via cart accompanied by a nurse. The patient left the laboratory in stable condition. Diagnostic Cath Status: Urgent Interventional Cath Status: Urgent Procedure Procedure Type Diagnostic procedure:Angiography:, Coronary Angios w/[facility] PCI procedure:Drug Eluting Coronary Stent:, LAD, Ramus, Additional Imaging:, FFR/iFR:, Initial Vessel, Add'l Vessel Indications: Abnormal enzymes and Unstable angina. The procedure was explained in detail to the patient. Risks, complications and alternative treatments were reviewed. Written consent was obtained. Medications Reviewed with Patient prior to Procedure. Angiographic Findings Dominance: Right Cardiac Arteries and Lesion Findings LMCA: Normal (0% Stenosis).Patent. LAD: Multiple stenosis.There is a previous stent on Dist LAD Mid subsection showing wide patency. Lesion on Mid LAD: Distal subsection.60% stenosis 28 mm length reduced to 0%. Pre procedure GERDA III flow was noted. Post Procedure GERDA III flow was present. The guidewire cross was successful.The lesion was diagnosed as a low risk lesion.Culprit lesion. FFR + + + + !FFR !Stage/Medication !Dosage ! + + + + !0.84 ! ! ! + + + + Devices used - Verrata Pressure Wire. Number of passes: 1. - Emerge Balloon 2.0 x 15. 2 inflation(s) to a max pressure of: 16 ananya. - Promus Premier 2.25 x 28 Stent. 1 inflation(s) to a max pressure of: 11 ananya. - NC Emerge Balloon 2.5 x 15. 2 inflation(s) to a max pressure of: 16 ananya. Lesion on 1st Diag: Proximal subsection.20% stenosis . LCx: Normal (0% Stenosis).Patent. RCA: Single stenosis. Lesion on Prox RCA: Mid subsection.30% stenosis . Ramus: Single stenosis. Lesion on Ramus: Proximal subsection.70% stenosis 28 mm length reduced to 0%. Pre procedure GERDA III flow was noted. Post Procedure GERDA III flow was present. The guidewire cross was successful.The lesion was diagnosed as a low risk lesion.Culprit lesion. FFR + + + + !FFR !Stage/Medication !Dosage ! + + + + !0.89 ! ! ! + + + + Treatment results:Interventional treatment was successful. Devices used - Verrata Pressure Wire. Number of passes: 1. - Emerge Balloon 2.5 x 15. 2 inflation(s) to a max pressure of: 18 ananya. - Promus Premier 2.75 x 28 Stent. 1 inflation(s) to a max pressure of: 14 ananya. - NC Emerge Balloon 3.0 x 15. 1 inflation(s) - NC Emerge Balloon 3.0 x 12. 3 inflation(s) to a max pressure of: 18 ananya. Coronary Tree Procedure Data Procedure Date Date: 03/01/2017Start: 09:34 AMEnd: 11:31 AM Entry Locations - Retrograde Percutaneous access was performed through the Right Radial artery. A 6 Fr sheath was inserted. Hemostasis was successfully obtained using a TR band. Closure Comments: 13 ml of air in R. Band by Alejandro Bernal. Procedure Medications Order and Administration + + + + + !Time !Medication !Dosage !Route ! + + + + + !03/01/2017 09:34 AM !Fentanyl !25 mcg !I.V. ! + + + + + !03/01/2017 09:48 AM !Heparin (ACC_3) !3000 units !I.V. bolus ! + + + + + !03/01/2017 09:59 AM !Heparin (ACC_3) !2000 units !I.V. bolus ! + + + + + !03/01/2017 10:36 AM !Heparin (ACC_3) !2000 units !I.V. bolus ! + + + + + !03/01/2017 10:36 AM !Fentanyl !25 mcg !I.V. ! + + + + + 03/01/2017 10:49 AM !Nitroglycerin !200 mcg !I.C. ! + + + + + 03/01/2017 10:58 AM !Plavix (ACC_8) !150 mg !P.O. ! + + + + + Devices Used - A6 Fr. BS JR 4 Diag. Catheterwas used for:Right coronary angiography. - A6 Fr. BS JL 3.5 Diag. Catheterwas used for:Left coronary angiography. - A6 Fr. XBLAD 3.5 Guide Catheterwas used for:LAD Intervention. Contrast Material - Isovue [id number] ml Fluoroscopy Time: Diagnostic: 26:01 minutes. Total: 26:01 minutes. Fluoroscopy Dose: Diagnostic: 2598 mGy. Total: 2598 mGy. Estimated Blood Loss: 15 ml. Medical History Allergies - Morphine. - Other:(Niacin). - Other:(Strawberries). - Morphine. - Other:(niacin). Risk Factors The patient risk factors include:prior PCI on 01/29/2017;treated hypercholesterolemia, treated hypertension, insulin-treated diabetes mellitus, last creatinine: 0.7 mg/dl, creatinine clearance: 83.64 ml/min, dyslipidemia, Current/Recent(w/in 1 year) tobacco use and prior heart failure . Admission Data Admission Date: 02/28/2017 Admission Time: 03:05 PM Admit Source: Emergency department Insurance Payors: Medicare. Admission Medications + +------+------+ + + + + !Medication !Dosage!Times !Last !Last !Administered !Comments ! ! ! !Per !Delivery !Delivery ! ! ! ! ! !Day !Date !Time ! ! ! + +------+------+ + + + + !ARB (any) ! ! ! ! ! ! ! + +------+------+ + + + + !Beta Thomas! ! ! ! ! ! ! !(any) ! ! ! ! ! ! ! + +------+------+ + + + + !Statin (any)! ! ! ! ! ! ! + +------+------+ + + + + !Clopidogrel ! ! ! ! ! ! ! + +------+------+ + + + + Clinical Evaluation Leading to Procedure - The patient's CAD presentation was assessed as: Unstable angina. - The patient's anginal syndrome during the past two weeks was assessed as: Class IV according to the [place] Cardiovascular Society Classification System (CCS). Anti-anginal medications were prescribed during the past two weeks. The medications are: Beta Blockers and Ca channel Blockers. - The patient has been in a state of heart failure within the past two weeks. - The patient's heart failure status was assessed as NYHA Class III. Snapshots Hemodynamics Condition: Rest O2 Consumption: Estimated: 189.11Heart Rate: 93 bpm Pressures (mmHg) +-----+ + !Site !Pressure ! +-----+ + !LV !105/7 ,10 ! +-----+ + !LV !102/7 ,9 ! +-----+ + !AO !103/65 (82) ! +-----+ + !LV !104/6 ,10 ! +-----+ + !AO !106/63 (83) ! +-----+ + !AO !108/59 (82) ! +-----+ + Valve Gradients and Areas + +---------+---------+---------+ +---------+ + !Valve !Peak !Mean !Area !Index !Flow !Source ! + +---------+---------+---------+ +---------+ + !Aortic !5 !6 ! ! ! ! ! + +---------+---------+---------+ +---------+ + !Aortic !5 !6 ! ! ! ! ! + +---------+---------+---------+ +---------+ + Shunts Oxygen Values O2 Capacity 161.84 O2 Consumption 189.11 Signatures dtt: Kat Newton dtd: 03/01/17 0934 Physician Self Edit
--- NOTE | ~2017-02-28 | DS ---
PATIENT'S NAME: DENYS STEPHENSON [facility] AGE: 76 Y [address] ROOM: [place] [address] LOCATION: GPCU ADMIT DATE: 02/28/2017 Discharge Summary DISCHARGE DATE: 03/02/2017 FAMILY PHYSICIAN: Prakash Zelaya MD ATTENDING PHYSICIAN: Juan Lynn DISCHARGE DIAGNOSES: 1. Chest pain with history of cardiovascular disease. 2. Acute hypoxic respiratory failure secondary to her chronic congestive heart failure. 3. Insulin type 2 diabetes mellitus. 4. Pyuria. 5. History of multiple myeloma. 6. History of atrial fibrillation. 7. Hypokalemia. 8. Anxiety. CONSULTS DURING ADMISSION: Cardiology. HOSPITAL COURSE: The patient is a 76-year-old female with known history of cardiovascular disease and diabetes mellitus type 2, insulin dependent, with an A1c in the 5, who presented again with chest pain. The patient recently had a heart catheterization and had a stent approximately a month ago. The patient was taken to [facility] on March 01 and stents were placed. The patient's chest pain resolved. The patient was placed on Ceftin for her urinary symptoms and urine cultures as of discharge were pending. The patient's hypoxemia also improved and Cardiology was following and diuresing. The patient's sugars remained stable with her current insulin regimen. The patient's blood pressure also remained stable. The patient did get some diuresis with her heart failure per Cardiology and upon day of discharge, her CHF and cardiovascular disease were stable and Cardiology felt that she was [facility]. DISCHARGE CONDITION: Stable. DISPOSITION: Home. DISCHARGE MEDICATIONS: Please see list. DISCHARGE INSTRUCTIONS: The patient is to follow up with the antibiotic as directed and follow up with Cardiology as directed and Dr. Zelaya in approximately 1 week. We will monitor her respiratory status and address any issues or concerns as they arise. We will continue her on a same dose of insulin. PATIENT'S NAME: DENYS STEPHENSON [facility] AGE: 76 Y [address] ROOM: [place] [address] LOCATION: GPCU ADMIT DATE: 02/28/2017 Discharge Summary DISCHARGE DATE: 03/02/2017 FAMILY PHYSICIAN: Prakash Zelaya MD ATTENDING PHYSICIAN: Juan Lynn MD Emilee SWENEEY /[id number] d: 03/03/17 0123 t: 03/13/17 [facility]0, DISCHARGE SUMMARY
[~2017-02-28 12:35] MED LIST changes: -COREG25 MG PO; -COUMADIN ** 9/62 MG PO; -LEVEMIR100 UNIT/1 SUB-Q; -PLAVIX75 MG PO
[2017-02-28 13:18] LABS: BICARBONATE 24.9 mmol/L (18.0-23.0); LACTATE 0.9 mEq/L (0.50-1.60); PCO2 53 mmHg (35-45)
[2017-02-28 13:19] LABS: BASOPHIL % 0.7 %; EOSINOPHIL % 0.7 %; HEMOGLOBIN 12.7 g/dL (10.0-15.0); IMMATURE GRANULOCYTE % 0.4 %; LYMPHOCYTE # 0.9 K/uL (0.8-4.0); LYMPHOCYTE % 30.2 %; MCH 34.6 pg (27.0-34.0); MCHC 32.6 gm/dL (32.0-36.5); MCV 106.3 fl (83.0-98.0); MONOCYTE # 0.3 K/uL (0.0-1.0); MONOCYTE % 11.2 %; MPV 10.4 fl (9.4-12.4); NEUTROPHIL # (ANC) 1.6 K/uL (1.8-7.8); NEUTROPHIL % 56.8 %; NRBC % 0 /100WBC (0-0.00); PLATELET COUNT 101 K/uL (150-450); PO2 35 mmHg (80-90); RBC 3.67 M/uL (3.50-5.50); RDW-CV 14.9 % (11.9-14.6); WBC 2.9 K/uL (4.0-11.0)
[2017-02-28 13:40] LABS: INR - (THERAPEUTIC) 1.21 (0.92-1.07); PROTIME 12.7 SECONDS (9.8-11.4)
[2017-02-28 13:41] LABS: PTT 29 SECONDS (25-32)
[2017-02-28 13:44] LABS: ALBUMIN 2.8 gm/dL (3.5-5.0); ALK PHOS 185 IU/L (33-138); ALT 96 IU/L (12-78); ANION GAP 10.4 (10.0-19.0); AST 57 IU/L (10-40); BLOOD UREA NITROGEN 14 mg/dL (6-24); CHLORIDE 110 mMol/L (96-110); CO2 24 mMol/L (22-32); CPK 93 IU/L (21-215); CREATININE 0.6 mg/dL (0.5-1.1); MAGNESIUM 2.5 mg/dL (1.8-2.6); POTASSIUM 4.4 mMol/L (3.7-5.1); SODIUM 140 mMol/L (135-145); TOTAL PROTEIN 5.7 g/dL (6.0-8.4)
[2017-02-28 13:51] LABS: CALCIUM 7.3 mg/dL (8.5-10.5); TOTAL BILIRUBIN 0.3 mg/dL (0.0-1.5)
[2017-02-28 15:08] LABS: BILIRUBIN URINE NEGATIVE (NEGATIVE); BLOOD URINE 150 /UL (NEGATIVE); COLOR URINE YELLOW (YELLOW); GLUCOSE URINE 250 mg/dL (NEGATIVE); KETONE URINE NEGATIVE (NEGATIVE); LEUKOCYTES URINE 100 /UL (NEGATIVE); NITRITE URINE NEGATIVE (NEGATIVE); PROTEIN URINE 100 mg/dL (NEGATIVE); TURBIDITY URINE 1+ (CLEAR); UROBILINOGEN URINE NORMAL (NORMAL)
[2017-02-28 15:17] LABS: AMORPHOUS URINE 1+ (NEGATIVE); BACTERIA URINE NEGATIVE (NEGATIVE); EPITHELIAL URINE 0-2 #/HPF (NEGATIVE); WBC URINE 50-100 #/HPF (NEGATIVE)
[2017-02-28 15:18] LABS: GRANULAR CASTS URINE 0-2 #/LPF (NEGATIVE); HYALINE CAST URINE 0-2 #/LPF (NEGATIVE)
[2017-02-28 15:28] LABS: CPK 85 IU/L (21-215)
--- NOTE | 2017-02-28 15:50 | NUR ---
Pt is 76 y/o female admit for chest pain for Juan Lynn MD. PT alert and oriented x3 but poor historian at times. No allergies. Hx head trauma,sz r/t head trauma,bronchitis,pleural effusion,occas cough,arthritis,bone CA, melanoma nose and left hand,incontinence,depression,DM,hypothyroid,UTI. Pt resides at [facility]. Pt is W/C bound. Came through ED. States she was given 3 aspirin by EMT's.
[2017-02-28] MEDS ORDERED: COUMADIN ** 9/62 MG PO ×2 (16:57→16:59)
[2017-02-28] MEDS ORDERED: DECADRON4 MG PO (17:04)
[2017-02-28] MEDS ORDERED: LEVEMIR100 UNIT/1 SUB-Q (17:09)
[2017-02-28] MEDS ORDERED: PLAVIX75 MG PO (17:10)
[2017-02-28] MEDS ORDERED: COREG25 MG PO (17:17)
--- NOTE | 2017-02-28 18:45 | NUR ---
Significant Event: A/O X3. VERY PLEASANT AND COOPERATIVE. VSS. 2L NC PER ACS PROTOCOL. PIV TO RIGHT HAND SL'D. VOIDS PER BEDPAN. W/C BOUND AT [facility]. C/O PAIN TO CHEST, TYLENOL GIVEN X1. SEEMS ANXIOUS ABOUT THINGS AT TIMES. FAMILY AT BEDSIDE. Follow up: DR. BURGESS CONSULTING
[2017-02-28 19:35] LABS: CPK 91 IU/L (21-215)
[2017-02-28 20:42] LABS: BASOPHIL % 0.7 %; EOSINOPHIL % 1.1 %; HEMOGLOBIN 11.9 g/dL (10.0-15.0); IMMATURE GRANULOCYTE % 0.4 %; LYMPHOCYTE # 0.8 K/uL (0.8-4.0); LYMPHOCYTE % 28.3 %; MCH 34.9 pg (27.0-34.0); MCHC 33.1 gm/dL (32.0-36.5); MCV 105.6 fl (83.0-98.0); MONOCYTE # 0.4 K/uL (0.0-1.0); MONOCYTE % 12.5 %; MPV 10.5 fl (9.4-12.4); NEUTROPHIL # (ANC) 1.6 K/uL (1.8-7.8); NRBC % 0 /100WBC (0-0.00); PLATELET COUNT 85 K/uL (150-450); RBC 3.41 M/uL (3.50-5.50); WBC 2.8 K/uL (4.0-11.0)
[2017-02-28 20:54] LABS: INR - (THERAPEUTIC) 1.27 (0.92-1.07); PROTIME 13.4 SECONDS (9.8-11.4); PTT 30 SECONDS (25-32)
[2017-02-28 20:59] LABS: ALBUMIN 2.6 gm/dL (3.5-5.0); ANION GAP 10.7 (10.0-19.0); CREATININE 0.7 mg/dL (0.5-1.1); POTASSIUM 3.7 mMol/L (3.7-5.1); TOTAL BILIRUBIN 0.3 mg/dL (0.0-1.5); TOTAL PROTEIN 5.2 g/dL (6.0-8.4)
[2017-02-28 21:04] LABS: CALCIUM 7.2 mg/dL (8.5-10.5)
[2017-03-01 01:31] LABS: CPK 83 IU/L (21-215)
[2017-03-01 04:00] LABS: MAGNESIUM 2.4 mg/dL (1.8-2.6)
--- NOTE | 2017-03-01 04:30 | NUR ---
A&Ox3. VSS on 2L per ACS protocol. R hand IV running NS. W/C bound. ACHS accuchecks, no treatment needed. Pt complained of chest pain at 1900, no other complaints throughout shift. Bottom red, heels red, left big toe scab, arm bruising. 1 small BM, void per bedpan with adequate UOP. Heart cath today. NPO for cath, permits signed. 1+ edema to right foot and ankle.
[2017-03-01 07:19] LABS: CPK 86 IU/L (21-215)
--- NOTE | 2017-03-01 12:13 | NUR ---
Patient just returned from [facility]. Is sleepy. She resides at [facility] in [place]. Will return there on discharge. Transfer packet at [facility] desk. Orders on chart. Will continue to follow.
[2017-03-01 12:28] LABS: CPK 96 IU/L (21-215)
[2017-03-01 18:21] LABS: CPK 94 IU/L (21-215)
--- NOTE | 2017-03-01 19:18 | NUR ---
Significant Event: A/O X3 BUT FORGETFUL. RIGHT RADIAL CATH DONE, R) BAND ON, SITE SOFT, NON-TENDER. RIGHT HAND IV WITH NS @ 100 ML/HR X1500 ML. C/O INABILITY TO HAVE BM HOWEVER, SHE HAD 2 BMs THIS AM ON BEDPAN. VOIDS PER BEDPAN. TURN Q2H. Follow up:
--- NOTE | 2017-03-02 04:21 | NUR ---
Significant Event: DISORIENTED TO TIME, FORGETFULL AT TIMES, COOPERATIVE WITH CARES. REMAINS IN A-FIB RATES 90'S WITH OCCASIONAL 100'S. SBP IN 90'S 1ST 2 ASSESSMENTS (SHE HAS BEEN RUNNING HYPOTENSISIVE) BUT LAST BP WAS 113/73. TRIED TO WEEN OFF 02, BUT COULDN'T TOLERATE, HAD TO PUT BACK ON 1L, WAS AT 2L AT START OF SHIFT. LAST TROP 0.067. RIGHT RADIAL CATH SITE HAS NO COMPLICATIONS, NOW ALLISON BENDER. APPETITE REMAINS POOR. 1 NORCO GIVEN X 1 AT 2158 FOR PAIN IN RIGHT GREAT TOE WITH RELIEF NOTED. Follow up:
[2017-03-02 05:49] LABS: HEMATOCRIT 37.4 % (33.0-46.0)
[2017-03-02 06:01] LABS: INR - (THERAPEUTIC) 2.4 (0.92-1.07); PROTIME 25.4 SECONDS (9.8-11.4)
[2017-03-02 06:13] LABS: ALBUMIN 2.8 gm/dL (3.5-5.0); ANION GAP 9.4 (10.0-19.0); CREATININE 0.6 mg/dL (0.5-1.1); POTASSIUM 4.4 mMol/L (3.7-5.1); TOTAL BILIRUBIN 0.2 mg/dL (0.0-1.5); TOTAL PROTEIN 5.4 g/dL (6.0-8.4)
--- NOTE | 2017-03-02 12:30 | NUR ---
Called and updated Nicolette at [facility] that patient has signed discharge orders on chart. Made arrangements for them to pick patient up at 1330. Orders faxed.
--- NOTE | 2017-03-02 12:51 | NUR ---
PATIENT HAD HEART CATH ON 03/01/17 RIGHT RADIAL ARM APPROACH. TOLERATED WELL. BANDAID TO AREA CDI. IV REMOVED FROM RIGHT HAND. RASH TO RIGHT GROIN, [place] TO SITE. AFIB. RIGHT GREAT TOE HAS SMALL OPEN AREA NEOSPORIN TO SITE. FOOTIES ON. NO PAIN MEDS GIVEN. DENIES CHEST PAIN. LS CLEAR ABD SOFT HAD SM BM TODAY. INCONTINENT OF URINE X3. CONTINUES TO BE NO CODE BLUE.
== END 2017-03-02 14:20 | DRG 286 ==
LOC: GMED 12:35 → GPCU 15:05
PROVIDERS: Emergency Medicine; Internal Medicine Cardiovascular Disease; ADMIT Family Medicine
PROC: B216YZZ Fluoroscopy of Right and Left Heart using Other Contrast (ICD-10-PCS; principal; 2017-03-01)
PROC: 4A023N7 Measurement of Cardiac Sampling and Pressure, Left Heart, Percutaneous Approach (ICD-10-PCS; principal; 2017-03-01)
DX: I25.119 Atherosclerotic heart disease of native coronary artery with unspecified angina pectoris (principal); J96.01 Acute respiratory failure with hypoxia; I50.32 Chronic diastolic (congestive) heart failure; N39.0 Urinary tract infection, site not specified; I11.0 Hypertensive heart disease with heart failure; Z79.82 Long term (current) use of aspirin; Z79.01 Long term (current) use of anticoagulants; E11.9 Type 2 diabetes mellitus without complications; Z79.4 Long term (current) use of insulin; Z92.21 Personal history of antineoplastic chemotherapy; G40.909 Epilepsy, unspecified, not intractable, without status epilepticus; Z91.81 History of falling; Z85.9 Personal history of malignant neoplasm, unspecified; E07.9 Disorder of thyroid, unspecified; F41.9 Anxiety disorder, unspecified; E87.6 Hypokalemia; Z99.81 Dependence on supplemental oxygen
CPT/HCPCS: C1725; C1769; C1874; C1887; C1894; C9600; J1644; J1650; J1940; J3010; J7030

== ENCOUNTER → 2017-02-28 | Outpatient (CLI) | payer MEDICARE, OTHER, MEDICAID | END | disposition disaster alternative care site (69) | LOC: GAMB 12:19 | DX: R07.9 Chest pain, unspecified (principal); J90 Pleural effusion, not elsewhere classified; I48.91 Unspecified atrial fibrillation | CPT/HCPCS: A0422; A0425; A0427 ==

== ENCOUNTER → 2017-03-05 | Outpatient (CLI) | payer OTHER, MEDICARE, MEDICAID ==
[~2017-03-05] MED LIST changes: +COREG25 MG PO; +COUMADIN ** 9/62 MG PO; +LEVEMIR100 UNIT/1 SUB-Q; +PLAVIX75 MG PO
[2017-03-05 10:38] LABS: PROTIME 56.4 SECONDS (9.8-11.4)
[2017-03-05 10:39] LABS: INR - (THERAPEUTIC) 5.28 (0.92-1.07)
== END ==
LOC: LJOHN2 10:19
PROVIDERS: Family Medicine
DX: D63.0 Anemia in neoplastic disease (principal); I48.91 Unspecified atrial fibrillation

== ENCOUNTER → 2017-03-07 | Outpatient (CLI) | payer MEDICARE, OTHER, MEDICAID ==
[2017-03-07 16:49] LABS: BASOPHIL % 1.3 %; EOSINOPHIL % 1.7 %; HEMATOCRIT 36.1 % (33.0-46.0); HEMOGLOBIN 11.3 g/dL (10.0-15.0); IMMATURE GRANULOCYTE % 0.4 %; LYMPHOCYTE # 0.7 K/uL (0.8-4.0); LYMPHOCYTE % 30.8 %; MCH 33.9 pg (27.0-34.0); MCHC 31.3 gm/dL (32.0-36.5); MCV 108.4 fl (83.0-98.0); MONOCYTE # 0.2 K/uL (0.0-1.0); MPV 10.3 fl (9.4-12.4); NEUTROPHIL # (ANC) 1.3 K/uL (1.8-7.8); NEUTROPHIL % 55.8 %; NRBC % 0 /100WBC (0-0.00); RBC 3.33 M/uL (3.50-5.50); RDW-CV 15.9 % (11.9-14.6); WBC 2.4 K/uL (4.0-11.0)
[2017-03-07 16:52] LABS: PLATELET COUNT 122 K/uL (150-450)
[2017-03-07 17:07] LABS: ALBUMIN 2.5 gm/dL (3.5-5.0); ANION GAP 9.6 (10.0-19.0); CREATININE 0.6 mg/dL (0.5-1.1); POTASSIUM 4.6 mMol/L (3.7-5.1); TOTAL PROTEIN 5.2 g/dL (6.0-8.4)
[2017-03-07 17:09] LABS: TOTAL BILIRUBIN 0.3 mg/dL (0.0-1.5)
== END ==
LOC: LNHI 16:42
PROVIDERS: Internal Medicine Cardiovascular Disease
DX: I21.4 Non-ST elevation (NSTEMI) myocardial infarction (principal); I50.9 Heart failure, unspecified; I48.2 Chronic atrial fibrillation

== ENCOUNTER → 2017-03-07 | Outpatient (CLI) | payer MEDICARE, OTHER, MEDICAID ==
[2017-03-07 12:05] LABS: INR - (THERAPEUTIC) 1.35 (0.92-1.07); PROTIME 14.2 SECONDS (9.8-11.4)
== END ==
LOC: LJOHN2 11:55
PROVIDERS: Family Medicine
DX: I48.91 Unspecified atrial fibrillation (principal)

== ENCOUNTER 2017-03-10 11:47 | Emergency (ER) | payer MEDICARE, OTHER, MEDICAID ==
--- NOTE | ~2017-03-10 | ER ---
PATIENT'S NAME: DENYS STEPHENSON [facility] AGE: 76 Y [address] ROOM: [place] [address] LOCATION: [facility] ADMIT DATE: 03/10/2017 ER/Outpatient Report DISCHARGE DATE: 03/10/2017 FAMILY PHYSICIAN: Prakash Zelaya MD ATTENDING PHYSICIAN: Homar Daniel CHIEF COMPLAINT: Nosebleed. TIME OF PATIENT ARRIVAL: 1147 TIME OF PATIENT EVALUATION: 1200 HISTORY OF PRESENT ILLNESS: This is a 76-year-old female who presents to the ER via [facility]. Apparently, the patient has been having troubles with some nosebleed since last evening. The patient is a poor historian, so most of the information was obtained from the retirement and her daughter, who came in later in her ER visit. She recently had a cardiac stent placed last month, and has acute respiratory failure secondary to her chronic congestive heart failure. The patient has a history of multiple myeloma and is on hospice for that. The patient states that she feels lightheaded and dizzy. She has heart palpitations, but no chest pain. Skilled Nursing denies her having any fevers at home. ALLERGIES: STRAWBERRIES, MORPHINE, AND NIACIN. MEDICATIONS: Please see medication list, nurse's notes. PAST MEDICAL HISTORY: 1. Multiple myeloma. 2. Acid reflux. 3. CHF. 4. Hypertension. 5. Atrial fibrillation. 6. Pulmonary hypertension. 7. Type 2 diabetes. 8. Anxiety. 9. History of hypokalemia. 10. Urinary incontinence. 11. Seizure disorder. PATIENT'S NAME: DENYS STEPHENSON [facility] AGE: 76 Y [address] ROOM: [place] [address] LOCATION: [facility] ADMIT DATE: 03/10/2017 ER/Outpatient Report DISCHARGE DATE: 03/10/2017 FAMILY PHYSICIAN: Prakash Zelaya MD ATTENDING PHYSICIAN: Homar Daniel SOCIAL HISTORY: She lives at [facility]. REVIEW OF SYSTEMS: All systems reviewed were negative with exception of those discussed in the HPI. PHYSICAL EXAMINATION: VITAL SIGNS: Blood pressure is 108/70, pulse is 121, respirations are 18, temperature is 98.4 degrees tympanically, and saturations are 99% on room air. Otto Coma Score is 15. GENERAL: Alert and pleasantly confused 76-year-old, in no acute distress. HEENT: Head: Normocephalic. Eyes: Pupils are equal and reactive to light. Ears: TMs display good light reflexes bilaterally. Nose: She has dried blood noted to the both nares. There is no active bleeding. Throat: No exudates or erythema. She does have some bloody postnasal drip, but no active bleeding was noted. LUNGS: Clear to auscultation. They are diminished. HEART: Irregular rate and rhythm. EXTREMITIES: She does have her feet in Unna boots. She has 1+ edema to the lower extremities. LABORATORY DATA: CBC: White count is 3.7, hemoglobin is 12.1, hematocrit is 38.2, and platelets are 148. AST is 2.3. INR is 1.03. CMS: Glucose is 130, BUN is 10, creatinine is 0.5, sodium is 141, potassium is 5.0, alkaline phosphatase is 148, AST is 30, ALT is 55, and GFR is greater than 90. Magnesium is 2.0. CPK is 92, CK-MB is 2.6, and troponin I is less than 0.040. ProBNP is 4199. D-dimer is 0.56. EKG shows atrial fibrillation with a right bundle-branch block. Chest x-ray is consistent with her prior chest x-ray last month with bilateral pleural effusions. IMPRESSION: 1. Epistaxis, most likely due to her nose being dry from her oxygen. 2. History of atrial fibrillation, is having some heart palpitations. 3. Multiple myeloma, is currently on hospice. 4. Congestive heart failure. ASSESSMENT AND PLAN: Daughter was in the room with the patient, and she states that she feels comfortable with her going back to the retirement. I advised them to place some sort of humidity to the oxygen or use the [id number] air to the nose for moisture. She needs to continue to monitor symptoms and follow up PATIENT'S NAME: DENYS STEPHENSON [facility] AGE: 76 Y [address] ROOM: [place], [place] [address] LOCATION: ED ADMIT DATE: 03/10/2017 ER/Outpatient Report DISCHARGE DATE: 03/10/2017 FAMILY PHYSICIAN: Prakash Zelaya MD ATTENDING PHYSICIAN: Homar Daniel with Dr. Zelaya in the next two to three days. The patient and patient's daughter understand and agree with care. CRISELDA MORENO PA-C FOR DO ELEANOR SÁNCHEZJ/modl /[id number] d: 03/10/17 2321 t: 03/24/17 2046, OUTPATIENT REPORT
[2017-03-10 13:33] LABS: BASOPHIL % 1.1 %; EOSINOPHIL % 1.1 %; HEMATOCRIT 38.2 % (33.0-46.0); HEMOGLOBIN 12.1 g/dL (10.0-15.0); IMMATURE GRANULOCYTE % 0.3 %; LYMPHOCYTE # 0.9 K/uL (0.8-4.0); LYMPHOCYTE % 25.3 %; MCH 34.9 pg (27.0-34.0); MCHC 31.7 gm/dL (32.0-36.5); MCV 110.1 fl (83.0-98.0); MONOCYTE # 0.3 K/uL (0.0-1.0); MONOCYTE % 8.4 %; MPV 9.4 fl (9.4-12.4); NEUTROPHIL # (ANC) 2.3 K/uL (1.8-7.8); NEUTROPHIL % 63.8 %; NRBC % 0 /100WBC (0-0.00); RBC 3.47 M/uL (3.50-5.50); RDW-CV 15.8 % (11.9-14.6); WBC 3.7 K/uL (4.0-11.0)
[2017-03-10 13:34] LABS: PLATELET COUNT 148 K/uL (150-450)
[2017-03-10 13:42] LABS: PROTIME 10.8 SECONDS (9.8-11.4); PTT 27 SECONDS (25-32)
[2017-03-10 13:44] LABS: INR - (THERAPEUTIC) 1.03 (0.92-1.07)
[2017-03-10 13:54] LABS: ALBUMIN 2.6 gm/dL (3.5-5.0); ALK PHOS 148 IU/L (33-138); ALT 55 IU/L (12-78); AST 38 IU/L (10-40); BLOOD UREA NITROGEN 10 mg/dL (6-24); CALCIUM 7.6 mg/dL (8.5-10.5); CHLORIDE 109 mMol/L (96-110); CO2 29 mMol/L (22-32); CPK 92 IU/L (21-215); CREATININE 0.5 mg/dL (0.5-1.1); SODIUM 141 mMol/L (135-145); TOTAL PROTEIN 5.5 g/dL (6.0-8.4)
[2017-03-10 14:01] LABS: TOTAL BILIRUBIN 0.2 mg/dL (0.0-1.5)
== END 2017-03-10 15:31 | disposition disaster alternative care site (69) ==
LOC: GMED 11:47
PROVIDERS: Physician Assistant Medical
DX: R04.0 Epistaxis (principal); C90.00 Multiple myeloma not having achieved remission; I48.91 Unspecified atrial fibrillation; I11.0 Hypertensive heart disease with heart failure; I50.9 Heart failure, unspecified; E11.9 Type 2 diabetes mellitus without complications; K21.9 Gastro-esophageal reflux disease without esophagitis; E87.6 Hypokalemia; F41.9 Anxiety disorder, unspecified; Z88.5 Allergy status to narcotic agent; Z88.8 Allergy status to other drugs, medicaments and biological substances; Z91.018 Allergy to other foods; Z79.82 Long term (current) use of aspirin; Z79.4 Long term (current) use of insulin; Z79.01 Long term (current) use of anticoagulants; Z79.891 Long term (current) use of opiate analgesic; Z79.899 Other long term (current) drug therapy